=== PATIENT | male | born 1955 | race Caucasian/White ===

== ENCOUNTER 2018-10-15 11:45 | Inpatient (IN) | payer OTHER ==
[~2018-10-15] VITALS: Ht 160 cm; Wt 34.4 kg
[~2018-10-15 11:45] MED LIST: DOCU-144 PO; FER325 PO; PANT40TA3 PO
[2018-10-15] MEDS ORDERED: IOHEXOL 300MG/ML 150 ML BTL ONE ×2 (14:14→16:35)
[2018-10-15] MEDS ORDERED: SOD CHLORIDE 0.9% 100 ML ONE ×2 (14:14→16:35)
[2018-10-15] MEDS ORDERED: NYSTATIN SUSP 5 ML CUP PO ONE (14:30)
[2018-10-15] MEDS ORDERED: FLUCONAZOLE 200 MG (PMX) 100 ML IVPB ONE (14:30)
--- NOTE | 2018-10-15 14:30 | ERD ---
ER Documentation Chief Complaint Chief Complaint swallowing problem x 2 months HPI This is a 63-year-old male who is complaining of gradually worsening of swallowing. The patient says over the past 2 months he said worsening ability to swallow food and water. He said that he is now lost the ability to swallow food and is having a very difficult time even swallowing liquids or his own saliva. He feels like his throat is swollen and his tongue is swollen. He also has a bit of anorexia and weight loss over the past few months. Denies any chest pain shortness of breath no fever. The patient denies being diabetic, he does have a smoking history. Denies voice changes ROS All systems reviewed and are negative except as per history of present illness. Medications Home Meds Discontinued Scripts Ferrous Sulfate* (Ferrous Sulfate*) 325 Mg Tabec, 325 MG PO DAILY for 60 Days, TAB Prov:WILNER BURDEN MD 04/28/16 Docusate Sodium* (Colace*) 100 Mg Capsule, 100 MG PO BID, #60 CAP Prov:WILNER BURDEN MD 04/28/16 Pantoprazole* (Protonix*) 40 Mg Tablet.dr, 40 MG PO BID for 30 Days, TAB Prov:WILNER BURDEN MD 04/28/16 Allergies Allergies: Coded Allergies: No Known Allergy (Unverified , 11/16/15) PMhx/Soc History of Surgery: No Anesthesia Reaction: No Hx Neurological Disorder: No Hx Respiratory Disorders: No Hx Cardiac Disorders: No Hx Psychiatric Problems: No Hx Miscellaneous Medical Probl: No (Denies medical history or surgery) Hx Alcohol Use: Yes (use to 8 months in tx) Hx Substance Use: No Hx Tobacco Use: Yes Smoking Status: Current every day smoker FmHx Family History: No coronary disease Physical Exam Vitals Vital Signs Date Temp Pulse Resp B/P (MAP) Pulse Ox O2 O2 Flow FiO2 Time Delivery Rate 10/15/18 97.0 72 18 110/58 99 11:49 (75) Physical Exam Const: Well-developed, a bit cachectic Head: Atraumatic, normocephalic Eyes: Normal Conjunctiva, PERRLA, EOMI, normal sclera, no nystagmus ENT: Normal External Ears, extensive thrush to the soft and hard palate with thrush to the inner mouth mucous membranes and tongue, tongue is swollen, oropharynx is a bit difficult to visualize but has thrush as well. Neck: [Full range of motion. No meningismus, scattered nontender mobile very firm lymph nodes in the anterior and submandibular chains Resp: Clear to auscultation bilaterally, no wheezing, rhonchi, rales Cardio: Regular rate and rhythm, no murmurs, S1 S2 present Abd: Soft, non tender x 4, non distended. Normal bowel sounds, no guarding or rebound, no pulsitile abdominal masses or bruits Skin: No petechiae or rashes, no ecchymosis , no maculopapular rash Back: No midline or flank tenderness Ext: No cyanosis, or edema, FROM x 4, normal inspection, neurovascularly intact x 4 Neur: Awake and alert, STR 5/5 x 4, sensation intact x 4, no focal findings, cerebellum intact Psych: Normal Mood and Affect Result Diagram: 10/15/18 1312 10/15/18 1312 Results 24 hrs Laboratory Tests Test 10/15/18 13:12 White Blood Count 7.1 10^3/ul Red Blood Count 4.09 10^6/ul Hemoglobin 9.7 g/dl Hematocrit 31.8 % Mean Corpuscular Volume 77.8 fl Mean Corpuscular Hemoglobin 23.7 pg Mean Corpuscular Hemoglobin Concent 30.5 g/dl Red Cell Distribution Width 19.2 % Platelet Count 290 10^3/UL Mean Platelet Volume 9.1 fl Immature Granulocytes % 0.600 % Neutrophils % 84.0 % Lymphocytes % 10.6 % Monocytes % 4.5 % Eosinophils % 0.0 % Basophils % 0.3 % Nucleated Red Blood Cells % 0.0 /100WBC Immature Granulocytes # 0.040 10^3/ul Neutrophils # 5.9 10^3/ul Lymphocytes # 0.8 10^3/ul Monocytes # 0.3 10^3/ul Eosinophils # 0.0 10^3/ul Basophils # 0.0 10^3/ul Nucleated Red Blood Cells # 0.0 10^3/ul Sodium Level 143 mmol/L Potassium Level 3.9 mmol/L Chloride Level 100 mmol/L Carbon Dioxide Level 31 mmol/L Anion Gap 12 Blood Urea Nitrogen 21 mg/dl Creatinine 0.65 mg/dl Est Glomerular Filtrat Rate mL/min > 60 mL/min Glucose Level 81 mg/dl Calcium Level 9.6 mg/dl Total Bilirubin 0.7 mg/dl Direct Bilirubin 0.00 mg/dl Indirect Bilirubin 0.7 mg/dl Aspartate Amino Transf (AST/SGOT) 30 IU/L Alanine Aminotransferase (ALT/SGPT) 15 IU/L Alkaline Phosphatase 76 IU/L Total Protein 8.0 g/dl Albumin 4.1 g/dl Globulin 3.90 g/dl Albumin/Globulin Ratio 1.05 Current Medications Medications Dose Sig/Paige Start Time Status Last (Trade) Ordered Route PRN Stop Time Admin Dose Reason Admin IV Flush 10 ml STK-MED 10/15/18 DC 10/15/18 (NS 10 ml) ONCE .ROUTE 14:14 10/15/18 14:51 14:15 Sodium 100 ml @ ud STK-MED 10/15/18 DC 10/15/18 Chloride ONCE .ROUTE 14:14 10/15/18 14:51 14:15 Iohexol 150 ml STK-MED 10/15/18 DC 10/15/18 (Omnipaque ONCE .ROUTE 14:14 10/15/18 14:51 300mg/ ml) 14:15 Fluconazole 100 ml @ ONCE ONCE 10/15/18 100 mls/hr IVPB 14:30 10/15/18 15:29 Nystatin 10 ml ONCE ONCE 10/15/18 DC (Nystatin PO 14:30 10/15/18 Susp) 14:31 Procedures/MDM MR #: [id number] DOS: 10/15/18 1254 Ordering MD: ABY JOHNSON DO Location: E/R Room/Bed: PROCEDURE: XR Chest. CLINICAL INDICATION: Abdominal pain TECHNIQUE: Frontal chest x-ray was obtained. COMPARISON: None. FINDINGS: The heart is not enlarged. Mediastinum is not widened. No hilar masses seen. Lungs are clear of any infiltrates. There is no effusion or pneumothorax. The osseous structures appear normal. The patient is post CABG. IMPRESSION: No evidence for active cardiopulmonary disease. .Juancho Louis MD, MD Date Time Electronically viewed and signed by .Juancho Louis MD, MD on 10/15/2018 13:52 .A/ CC: CHELY JOHNSONILSA TamaraMarquez LLOYD [id number] PROCEDURE: CT of the neck CLINICAL INDICATION: Difficulty swallowing TECHNIQUE: Using a [employer] light speed [address] scanner, multiple axial CT image s of the neck were obtained from the skull base to the superior mediastinum. 80 cc of Omnipaque 300 was administered. Coronal and sagittal reformatted images were provided. The images were reviewed on a high-resolution PACS workstation. The CTDI vol is 9.53 mGy and the DLP is 225.3 mGy-cm. DICOM images are available. One or more of the following dose reduction techniques were used: Automated exposure control. Adjustment of the mA and/or kV according to patient size. Use of iterative reconstruction technique. COMPARISON: None FINDINGS: Diffuse soft tissue swelling is seen throughout the neck. The bilateral parotid and submandibular glands are normal in size and attenuation. Increased soft tissue density is seen in the floor of the mouth and base of the tongue with a collection of air and the suggestion of fluid which appears to communicate with the aerodigestive tract at the junction of the oropharynx and hypopharynx. The air collection measures approximately 4.1 x 2.8 x 2 cm in size. An area of irregular increased soft tissue density is also suspected in the left lateral wall of the oropharynx which appears to extend into the hypopharynx with the suggestion of the false vocal folds and is suspected to measure approximately 3.1 X 1.9 X 1.7 cm in size. A small amount of debris is seen in the right posterior lateral tracheal lumen. The nasopharynx, true vocal folds, and remainder of the subglottic region are otherwise unremarkable. The thyroid gland is normal in size and attenuation. Multiple enlarged lymph nodes within the cervical and submental chain are seen which are heterogeneous in attenuation. Centrilobular emphysematous changes in the visualized lung apices is seen. Diffuse osteopenia is seen. Degenerative spondylosis in the cervical spine is seen. A compression fracture of the T3 vertebral body is seen which is moderate in extent and appears to be chronic in nature. Vascular calcifications are seen. IMPRESSION: 1. Increased soft tissue density in the floor of mouth / base of tongue with the suggestion of a collection of air and fluid which communicates of the aerodigestive tract as described above and may represent a neoplastic process s uch as a primary squamous cell carcinoma. In addition, the possibility of an infectious/inflammatory process such as a clinical history of candidiasis should also be considered. The possibility of other neoplastic processes cannot be excluded. Further evaluation with endoscopy suggested. In addition, an MRI of the neck without and with intravenous contrast is recommended. 2. Suggestion of an irregular soft tissue mass in the left lateral oral pharyngeal wall which appears to extend into the hypopharynx and false vocal folds which may represent a neoplastic process such as a squamous cell carc inoma. Further evaluation with endoscopy tissue diagnosis may be of value. In addition, an MRI of the neck without and with intravenous contrast is recommended. 3. Multiple enlarged cervical and submental chain lymph nodes which appears to be necrotic in appearance and may represent lymph node metastasis. The possibility of an infectious etiology such as tuberculosis cannot be excluded. RPTAT: HPNM Results were discussed with Aby Johnson at 10/15/2018 2:47:23 PM Physician Pattie Date Time Electronically viewed and signed by Physician Pattie on 10/15/2018 14:53 / CC: ABY JOHNSON DO Patient has extensive Tari on exam I will give him intravenous fluconazole as well as oral nystatin dose. I ordered MRI with and without contrast of neck to evaluate for neoplastic process I paged ENT Dr. Saleem for consultation. Patient is unable to even swallow liquids at this point and will need to be admitted to the hospital for IV fluid hydration and further workup Departure Diagnosis: Primary Impression: Oral neoplasm Additional Impressions: Oral candidiasis Odynophagia Condition: Stable ABY JOHNSON DO Oct 15, 2018 14:30
[2018-10-15] MEDS ORDERED: SOD CHLORIDE 0.9% 1,000 ML IV SCH (15:38)
[2018-10-15] MEDS ORDERED: ACETAMINOPHEN 325 MG TAB PO PRN (16:00)
[2018-10-15] MEDS ORDERED: ONDANSETRON 4 MG INJ IV PRN ×2 (16:00→16:30)
[2018-10-15] MEDS ORDERED: morphine 2 MG INJ IV PRN (16:30)
[2018-10-15] MEDS ORDERED: NACL 0.9% 3 ML SYG IV SCH (16:30)
[2018-10-15] MEDS: NYSTATIN SUSP 5 ML CUP PO SCH ×2 (16:47→20:18)
--- NOTE | 2018-10-15 17:15 | HP ---
Date/Time of Note Date/Time of Note DATE: 10/15/18 TIME: 16:50 Assessment/Plan VTE Prophylaxis SCD applied (from Nsg): Yes Pharmacological prophylaxis: NA/contraindicated Pharm contraindication: surgical contra Lines/Catheters IV Catheter Type (from Nrsg): Saline Lock Assessment/Plan Assessment/Plan 1. Dysphagia, solid and liquids - CT scan suspicious for SCC. MRI ordered and results pending - Dr. Saleem consulted for further recommendations - Fluconazole IV as well as swish and spit ordered - Discussed potential need for PEG tube based on plan of care. - Oncology consultation placed given high suspicion for SCC. Dr. Ross will plan to see patient 2. Anemia - most like secondary to suppression - will check iron levels - given MCV 77, most likely iron deficiency 3. Tobacco abuse - nicotine patch 4. Severe protein malnutrition - patient usually is 125 lbs - will need to discuss nutrition based on findings of workup - IVF for now 5. Diet - NPO for now 6. DVT ppx - SCD 7. GI ppx - PPI 8. Disposition - Admit to med/surg for workup of dysphagia Result Diagram: 10/15/18 1312 10/15/18 1312 Results 24hrs Laboratory Tests Test 10/15/18 13:12 White Blood Count 7.1 Red Blood Count 4.09 L Hemoglobin 9.7 L Hematocrit 31.8 L Mean Corpuscular Volume 77.8 L Mean Corpuscular Hemoglobin 23.7 L Mean Corpuscular Hemoglobin Concent 30.5 L Red Cell Distribution Width 19.2 #H Platelet Count 290 Mean Platelet Volume 9.1 Immature Granulocytes % 0.600 H Neutrophils % 84.0 H Lymphocytes % 10.6 L Monocytes % 4.5 Eosinophils % 0.0 Basophils % 0.3 Nucleated Red Blood Cells % 0.0 Immature Granulocytes # 0.040 H Neutrophils # 5.9 Lymphocytes # 0.8 Monocytes # 0.3 Eosinophils # 0.0 Basophils # 0.0 Nucleated Red Blood Cells # 0.0 Sodium Level 143 Potassium Level 3.9 Chloride Level 100 Carbon Dioxide Level 31 Anion Gap 12 Blood Urea Nitrogen 21 H Creatinine 0.65 Est Glomerular Filtrat Rate mL/min > 60 Glucose Level 81 Calcium Level 9.6 Total Bilirubin 0.7 Direct Bilirubin 0.00 Indirect Bilirubin 0.7 Aspartate Amino Transf (AST/SGOT) 30 Alanine Aminotransferase (ALT/SGPT) 15 Alkaline Phosphatase 76 Total Protein 8.0 Albumin 4.1 Globulin 3.90 H Albumin/Globulin Ratio 1.05 HPI/ROS Admit Date/Time Admit Date/Time 10/15/18 1630 Hx of Present Illness 63 yo F with no significant PMH presented to ED with difficulty swallowing over the past 2 months with associated weight loss. Patient unable to communicate well and sister in law at bedside assisting with history. Patient has been ex periencing difficulty swallowing foods and progressively having difficulty swallowing liquids over the past week. Sister in law has noticed increase in fatigue over the past week and patient has been complaining of difficulty swallowing water and even his own saliva. He feels as if his throat is swollen as well as his tongue. He usually is 125 lbs and unsure how much weight he has lost. He was recorded at 78lb in the ED. Patient admits to ETOH use and tobacco abuse. Patient denies any family history of cancer, chest pain, shortness of breath, dizziness, fevers, chills, abdominal pain, or urinary issues. ROS All 12 systems reviewed and pertinent positives as per HPI. All others negative. Constitutional: No chills, No fatigue, No nausea Eyes: No discharge ENT: dysphagia, other (swelling throat and tongue); No pain, No congestion Respiratory: No cough, No shortness of breath, No sputum, No wheezing Cardiovascular: No chest pain, No lightheadedness, No palpitations Gastrointestinal: No pain, No constipation, No diarrhea, No nausea, No vomiting Genitourinary: no complaints Musculoskeletal: no complaints Skin: No bruising, No laceration, No rash Neurologic: No confusion, No dizziness, No focal-weakness, No syncope Endocrine: no complaints Lymphatic: no complaints Psychological: nl mood/affect Immunologic: no complaints PMH/Family/Social Past Medical History Medical History: no pertinent history Medications Current Medications Sodium Chloride 1,000 ml @ 80 mls/hr [id number] IV ; Start 10/15/18 at 15:38; Stop 10/16/18 at 04:07 Ondansetron HCl (Zofran Inj) 4 mg BRIDGE ORDER PRN IV NAUSEA/VOMITING; Start 10/15/18 at 16:00; Stop 10/16/18 at 15:59 Acetaminophen (Tylenol Tab) 650 mg ER BRIDGE PRN PO .MILD PAIN 1-3 OR TEMP; Start 10/15/18 at 16:00; Stop 10/16/18 at 15:59 Coded Allergies: No Known Allergy (Unverified , 11/16/15) Past Surgical History Past Surgical Hx: no surgical history Family History Significant Family History: no pertinent family hx Social History Alcohol Use: occasionally Smoking Status: Current every day smoker Drug Use: none Exam/Review of Systems Vital Signs Vitals Vital Signs Date Temp Pulse Resp B/P (MAP) Pulse Ox O2 O2 Flow FiO2 Time Delivery Rate 10/15/18 97.0 72 18 110/58 99 11:49 (75) Exam Exam General: Patient is laying in bed and answers questions. extremely cachetic HEENT: NC/AT, PERRL, EOM intact, thrush appreciate soft and hard palate and tongue. swelling of tongue and hard to visual oropharynx \ Neck: Supple, palpable submandibular LN b/l Chest: nontender Respiratory: Clear to auscultation bilaterally. no wheezing or rhonchi Cardiovascular: S1, S2, regular rate and rhythm, no obvious murmurs Gastrointestinal: soft, nontender to palpation, nondistended, bowel sounds heard. no rebound or guarding Neurological: Moves all extremities spontaneously. no focal deficits. motor and sensory intact Skin: No new skin lesions Additional Comments No home medications PROCEDURE: CT of the neck CLINICAL INDICATION: Difficulty swallowing TECHNIQUE: Using a [employer] light speed [address] scanner, multiple axial CT images of the neck were obtained from the skull base to the superior mediastinum. 80 cc of Omnipaque 300 was administered. Coronal and sagittal reformatted images were provided. The images were reviewed on a high-resolution PACS workstation. The CTDI vol is 9.53 mGy and the DLP is 225.3 mGy-cm. DICOM images are available. One or more of the following dose reduction techniques were used: Automated exposure control. Adjustment of the mA and/or kV according to patient size. Use of iterative reconstruction technique. COMPARISON: None FINDINGS: Diffuse soft tissue swelling is seen throughout the neck. The bilateral parotid and submandibular glands are normal in size and attenuation. Increased soft tissue density is seen in the floor of the mouth and base of the tongue with a collection of air and the suggestion of fluid which appears to communicate with the aerodigestive tract at the junction of the oropharynx and hypopharynx. The air collection measures approximately 4.1 x 2.8 x 2 cm in size. An area of irregular increased soft tissue density is also suspected in the left lateral wall of the oropharynx which appears to extend into the hypopharynx with the suggestion of the false vocal folds and is suspected to measure approximately 3.1 X 1.9 X 1.7 cm in size. A small amount of debris is seen in the right posterior lateral tracheal lumen. The nasopharynx, true vocal folds, and remainder of the subglottic region are otherwise unremarkable. The thyroid gland is normal in size and attenuation. Multiple enlarged lymph nodes within the cervical and submental chain are seen which are heterogeneous in attenuation. Centrilobular emphysematous changes in the visualized lung apices is seen. Diffuse osteopenia is seen. Degenerative spondylosis in the cervical spine is seen. A compression fracture of the T3 vertebral body is seen which is moderate in extent and appears to be chronic in nature. Vascular calcifications are seen. IMPRESSION: 1. Increased soft tissue density in the floor of mouth / base of tongue with the suggestion of a collection of air and fluid which communicates of the a erodigestive tract as described above and may represent a neoplastic process such as a primary squamous cell carcinoma. In addition, the possibility of an infectious/inflammatory process such as a clinical history of candidiasis should also be considered. The possibility of other neoplastic processes cannot be excluded. Further evaluation with endoscopy suggested. In addition, an MRI of the neck without and with intravenous contrast is recommended. 2. Suggestion of an irregular soft tissue mass in the left lateral oral pharyngeal wall which appears to extend into the hypopharynx and false vocal folds which may represent a neoplastic process such as a squamous cell carcinoma. Further evaluation with endoscopy tissue diagnosis may be of value. In addition, an MRI of the neck without and with intravenous contrast is recommended. 3. Multiple enlarged cervical and submental chain lymph nodes which appears to be necrotic in appearance and may represent lymph node metastasis. The possibility of an infectious etiology such as tuberculosis cannot be excluded. RPTAT: HPNM Results were discussed with Aby Farfan at 10/15/2018 2:47:23 PM Pedro Del Valle, Physician Date Time Electronically viewed and signed by Pedro Del Valle Physician on 10/15/2018 14:53 PROCEDURE: XR Chest. CLINICAL INDICATION: Abdominal pain TECHNIQUE: Frontal chest x-ray was obtained. COMPARISON: None. FINDINGS: The heart is not enlarged. Mediastinum is not widened. No hilar masses seen. Lungs are clear of any infiltrates. There is hyperinflation. There is no effusion or pneumothorax. The osseous structures appear normal. IMPRESSION: No evidence for active cardiopulmonary disease. Hyperinflation. .Juancho Louis MD, MD Date Time Electronically viewed and signed by .Juancho Louis MD, MD on 10/15/2018 13:53 DARRON KULKARNI MD Oct 15, 2018 17:03
[2018-10-15 17:56] VITALS: Ht 160 cm; Wt 34.4 kg
[2018-10-15 18:11] VITALS: BP 130/68; PULSE 77; RESP 17
[2018-10-15] MEDS: DEXTROSE 5%-0.45% NACL 1,000 ML IV SCH (18:19)
[2018-10-15] MEDS: FLUCONAZOLE 100 MG/50 ML (PMX) 50 ML IVPB SCH (19:30)
[2018-10-15 20:00] VITALS: BP 116/79; PULSE 85; RESP 18
[2018-10-16 01:57] VITALS: BP 106/66; PULSE 62; RESP 17
[2018-10-16] MEDS: DEXTROSE 5%-0.45% NACL 1,000 ML IV SCH ×4 (05:29→23:56)
[2018-10-16] MEDS: PANTOPRAZOLE 40 MG INJ IV SCH (05:51)
[2018-10-16 07:13] VITALS: BP 100/64; PULSE 61; RESP 16
--- NOTE | 2018-10-16 08:21 | PN ---
Date/Time of Note Date/Time of Note DATE: 10/16/18 TIME: 08:21 Assessment/Plan VTE Prophylaxis Risk score (from Ns)>0 risk: 2 SCD applied (from Ns): Yes Pharmacological prophylaxis: heparin Lines/Catheters IV Catheter Type (from Nrsg): Peripheral IV Assessment/Plan Assessment/Plan 1. Dysphagia, solid and liquids - CT scan suspicious for SCC. MRI ordered and resulted noted - Dr. Saleem consulted for further recommendations - Fluconazole IV on board. Thrush on tongue and palate not appreciate this am after provided oral care yesterday - Discussed potential need for PEG tube based on plan of care. - Oncology consultation placed given high suspicion for SCC. Dr. Ross will plan to see patient tomorrow 2. Anemia, iron deficiency - IV iron replacement - will need PO when able to tolerate 3. Tobacco abuse - nicotine patch 4. Severe protein malnutrition 5. Disposition - Awaiting ENT consultation by Dr. Saleem - Dr. Ross will see patient Wednesday Result Diagram: 10/16/18 0508 10/16/18 0428 Results 24hrs Laboratory Tests Test 10/15/18 13:12 10/16/18 04:28 10/16/18 05:08 White Blood Count 7.1 5.9 Red Blood Count 4.09 L 3.91 L Hemoglobin 9.7 L 9.2 L Hematocrit 31.8 L 30.8 L Mean Corpuscular Volume 77.8 L 78.8 L Mean Corpuscular Hemoglobin 23.7 L 23.5 L Mean Corpuscular Hemoglobin Concent 30.5 L 29.9 L Red Cell Distribution Width 19.2 #H 19.1 H Platelet Count 290 278 Mean Platelet Volume 9.1 9.8 Immature Granulocytes % 0.600 H 0.300 Neutrophils % 84.0 H 75.6 Lymphocytes % 10.6 L 16.5 Monocytes % 4.5 7.4 Eosinophils % 0.0 0.0 Basophils % 0.3 0.2 Nucleated Red Blood Cells % 0.0 0.0 Immature Granulocytes # 0.040 H 0.020 Neutrophils # 5.9 4.5 Lymphocytes # 0.8 1.0 Monocytes # 0.3 0.4 Eosinophils # 0.0 0.0 Basophils # 0.0 0.0 Nucleated Red Blood Cells # 0.0 0.0 Sodium Level 143 139 Potassium Level 3.9 4.7 Chloride Level 100 99 Carbon Dioxide Level 31 31 Anion Gap 12 9 Blood Urea Nitrogen 21 H 19 Creatinine 0.65 0.70 Est Glomerular Filtrat Rate mL/min > 60 > 60 Glucose Level 81 88 Calcium Level 9.6 9.1 Iron Level 21 L Total Iron Binding Capacity 346 Percent Iron Saturation 6 L Total Bilirubin 0.7 Direct Bilirubin 0.00 Indirect Bilirubin 0.7 Aspartate Amino Transf (AST/SGOT) 30 Alanine Aminotransferase (ALT/SGPT) 15 Alkaline Phosphatase 76 Total Protein 8.0 Albumin 4.1 Globulin 3.90 H Albumin/Globulin Ratio 1.05 Magnesium Level 2.3 Subjective 24 Hr Interval Summary Free Text/Dictation Patient states he is feeling better since yesterday but still unable to swallow liquids. States its been about 4 day prior to arrival since he was able to s wallow liquids but has been trying to drink Ensure at home. Brother at bedside. Exam/Review of Systems Exam Vitals Vital Signs Date Temp Pulse Resp B/P (MAP) Pulse Ox O2 O2 Flow FiO2 Time Delivery Rate 10/16/18 97.7 61 16 100/64 98 07:13 (76) 10/16/18 Room Air 01:57 Intake and Output 10/15/18 10/15/18 10/16/18 1515:00 23:00 07:00 IntakeIntake Total 50 ml 850 ml BalanceBalance 50 ml 850 ml Exam General: Patient is laying in bed. no acute distress. extremely cachetic HEENT: NC/AT, PERRL, EOM intact, no thrush appreciate on tongue or palate Neck: Supple, palpable submandibular LN b/l, nontender Chest: nontender Respiratory: Clear to auscultation bilaterally. no wheezing or rhonchi Cardiovascular: S1, S2, regular rate and rhythm, no obvious murmurs Gastrointestinal: soft, nontender to palpation, nondistended, bowel sounds heard. no rebound or guarding Skin: No new skin lesions Results Results 24hrs Laboratory Tests Test 10/15/18 13:12 10/16/18 04:28 10/16/18 05:08 White Blood Count 7.1 5.9 Red Blood Count 4.09 L 3.91 L Hemoglobin 9.7 L 9.2 L Hematocrit 31.8 L 30.8 L Mean Corpuscular Volume 77.8 L 78.8 L Mean Corpuscular Hemoglobin 23.7 L 23.5 L Mean Corpuscular Hemoglobin Concent 30.5 L 29.9 L Red Cell Distribution Width 19.2 #H 19.1 H Platelet Count 290 278 Mean Platelet Volume 9.1 9.8 Immature Granulocytes % 0.600 H 0.300 Neutrophils % 84.0 H 75.6 Lymphocytes % 10.6 L 16.5 Monocytes % 4.5 7.4 Eosinophils % 0.0 0.0 Basophils % 0.3 0.2 Nucleated Red Blood Cells % 0.0 0.0 Immature Granulocytes # 0.040 H 0.020 Neutrophils # 5.9 4.5 Lymphocytes # 0.8 1.0 Monocytes # 0.3 0.4 Eosinophils # 0.0 0.0 Basophils # 0.0 0.0 Nucleated Red Blood Cells # 0.0 0.0 Sodium Level 143 139 Potassium Level 3.9 4.7 Chloride Level 100 99 Carbon Dioxide Level 31 31 Anion Gap 12 9 Blood Urea Nitrogen 21 H 19 Creatinine 0.65 0.70 Est Glomerular Filtrat Rate mL/min > 60 > 60 Glucose Level 81 88 Calcium Level 9.6 9.1 Iron Level 21 L Total Iron Binding Capacity 346 Percent Iron Saturation 6 L Total Bilirubin 0.7 Direct Bilirubin 0.00 Indirect Bilirubin 0.7 Aspartate Amino Transf (AST/SGOT) 30 Alanine Aminotransferase (ALT/SGPT) 15 Alkaline Phosphatase 76 Total Protein 8.0 Albumin 4.1 Globulin 3.90 H Albumin/Globulin Ratio 1.05 Magnesium Level 2.3 Medications Medication Current Medications Dextrose/Sodium Chloride 1,000 ml @ 75 mls/hr [id number] IV Last administered on 10/15/18at 18:19; Admin Dose 75 MLS/HR; Start 10/15/18 at 16:09 IV Flush (NS 3 ml) 3 ml PER PROTOCOL IV ; Start 10/15/18 at 16:30 Ondansetron HCl (Zofran Inj) 4 mg Q6H PRN IV NAUSEA/VOMITING; Start 10/15/18 at 16:30 Morphine Sulfate (morphine) 2 mg Q4H PRN IV .SEVERE PAIN 7-10; Start 10/15/18 at 16:30 Pantoprazole (Protonix Iv) 40 mg DAILY@06 IV Last administered on 10/16/18at 05:51; Admin Dose 40 MG; Start 10/16/18 at 06:00 Nystatin (Nystatin Susp) 5 ml QID PO Last administered on 10/15/18at 20:18; Admin Dose 5 ML; Start 10/15/18 at 17:00 Nicotine (Nicoderm 21 Mg/ 24hr) 1 patch DAILY TRANSDERM ; Start 10/16/18 at 09:00 Fluconazole/ Sodium Chloride 50 ml @ 50 mls/hr Q24H IVPB Last administered on 10/15/18at 19:30; Admin Dose 50 MLS/HR; Start 10/15/18 at 17:30 Influenza Virus Vaccine Quadrival (Fluzone) 0.5 ml ONCE ONCE IM* ; Start 10/16/18 at 09:00; Stop 10/16/18 at 09:01 DARRON KULKARNI MD Oct 16, 2018 08:21
[2018-10-16] MEDS: NYSTATIN SUSP 5 ML CUP PO SCH ×2 (08:45→13:44)
[2018-10-16] MEDS: NICOTINE (21 MG/24 HR) PATCH TRANSDERM SCH (08:45)
[2018-10-16] MEDS ORDERED: INFLUENZA VIRUS VACCINE 0.5 ML (DISPENSING) IM* ONE (09:00)
[2018-10-16 14:48] VITALS: BP 119/72; PULSE 57; RESP 16
[2018-10-16] MEDS: FLUCONAZOLE 100 MG/50 ML (PMX) 50 ML IVPB SCH (16:51)
[2018-10-16 19:48] VITALS: BP 115/70; PULSE 55; RESP 18
[2018-10-16] MEDS: HEPARIN 5,000 UNIT/1 ML VIAL SC SCH (20:46)
[2018-10-17 01:36] VITALS: BP 123/71; PULSE 59; RESP 18
[2018-10-17] MEDS: PANTOPRAZOLE 40 MG INJ IV SCH (05:17)
[2018-10-17 07:19] VITALS: BP 132/75; PULSE 59; RESP 16
[2018-10-17] MEDS: HEPARIN 5,000 UNIT/1 ML VIAL SC SCH (09:04)
[2018-10-17] MEDS: NICOTINE (21 MG/24 HR) PATCH TRANSDERM SCH (09:08)
[2018-10-17 13:23] VITALS: BP 123/73; PULSE 50; RESP 16
--- NOTE | 2018-10-17 13:52 | HP ---
DATE OF ADMISSION: 10/15/2018 HISTORY OF PRESENT ILLNESS: Cassius Dykes is a 63-year-old gentleman with some mild dysphagia and a m uffled voice. ENT was consulted to evaluate. PAST MEDICAL HISTORY: Negative for any heart, lung, kidney failure, liver disease. PAST SURGICAL HISTORY: None. ALLERGIES: No known drug allergies. MEDICATIONS: Patient takes no medicines at home. SOCIAL HISTORY: Positive for a long history of tobacco abuse. Negative for alcohol abuse or drug ab use. FAMILY HISTORY: Negative for any heart, lung, kidney, thyroid, liver disease. REVIEW OF SYSTEMS: A 12-point review of systems otherwise noncontributory. Negative for any otalgia or odynophagia, no hemoptysis. PHYSICAL EXAMINATION: Septum deviated anteriorly to the right, posteriorly to the left. The oral ca vity and oropharynx show tongue, floor of mouth are normal. Tonsils are not enlarged. He does have a ptotic soft palate, but the oropharynx, though I can see is without lesion. The neck reveals bilat eral level 2 lymphadenopathy and is quite firm in nature. Endoscopy performed through the right nasa l cavity shows the nasopharynx to be clear. The base of tongue has an approximately a 2 cm midline. Lesion posterior to that I can see the vocal cords, they are moving well without any obstruction or hindrance to their mobility. The airway is reasonable. He does have quite a good deal of inspissate d and thickened secretions within the hypopharynx. IMPRESSION: Base of tongue mass, lymphadenopathy, deviated nasal septum. PLAN: At this point, if the diagnosis has not already been obtained, it is reasonable to proceed wit h a fine needle aspiration biopsy of the level 2 lymphadenopathy to secure a diagnosis of what appear s to be most likely squamous cell carcinoma. Once that is done, he can proceed with radiation therap y and possibly chemotherapy. If there are any questions or concerns, please feel free to reconsult a t any time. Dictated By: REGI ASHER MD DM/NTS Conf#: [id number] DID#: [id number] CC: DARRON KULKARNI MD;*EndCC*
--- NOTE | 2018-10-17 13:56 | CONS ---
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, locally advanced -need tissue diagnosis, ENT has been consulted -for US guided biopsy of cervical LN mass -CT chest is negative for mets -once we have pathology back on biopsy, if confirmed to be SCCa of head and neck would most likely receive a combine chemotherapy RT approach with cisplatin give every 3 weeks IV while on radiation -needs dental evaluation -needs mediport and PEG tube -nutrition evaluation -for iron def anemia agree with IV iron given that pt cannot drink/ or eat Consultation Date/Type/Reason Admit Date/Time 10/15/18 1630 Date/Time of Note DATE: 10/17/18 TIME: 13:54 Hx of Present Illness 63 yo male with w difficulty swallowing over the past 2 months with associated weight loss. Also has difficulty swallowing solids and now with difficulty swallowing liquids over the past week. Family notes fatigue. Feels that his throat and tongue are swollen. Has lost about [address] neck 10/15/18: 1. Increased soft tissue density in the floor of mouth / base of tongue with the suggestion of a collection of air and fluid which communicates of the aerodigestive tract as described above and may represent a neoplastic process such as a primary squamous cell carcinoma. In addition, the possibility of an infectious/inflammatory process such as a clinical history of candidiasis should also be considered. The possibility of other neoplastic processes cannot be exc luded. Further evaluation with endoscopy suggested. In addition, an MRI of the neck without and with intravenous contrast is recommended. 2. Suggestion of an irregular soft tissue mass in the left lateral oral pharyngeal wall which appears to extend into the hypopharynx and false vocal folds which may represent a neoplastic process such as a squamous cell carcinoma. Further evaluation with endoscopy tissue diagnosis may be of value. In addition, an MRI of the neck without and with intravenous contrast is recommended. 3. Multiple enlarged cervical and submental chain lymph nodes which appears to be necrotic in appearance and may represent lymph node metastasis. The possibility of an infectious etiology such as tuberculosis cannot be excluded. CT chest shows no mets ENT has been consulted as has radiation oncology Constitutional: poor po Eyes: no complaints ENT: pain, dysphagia, sore throat Respiratory: no complaints Cardiovascular: no complaints Gastrointestinal: decreased appetite, nausea Genitourinary: no complaints Musculoskeletal: no complaints Skin: no complaints Neurologic: no complaints Endocrine: no complaints Lymphatic: no complaints Psychological: no complaints, nl mood/affect Past Medical History Medical History: no pertinent history Home Meds Discontinued Scripts Ferrous Sulfate* (Ferrous Sulfate*) 325 Mg Tabec, 325 MG PO DAILY for 60 Days, TAB Prov:WILNER BURDEN MD 04/28/16 Docusate Sodium* (Colace*) 100 Mg Capsule, 100 MG PO BID, #60 CAP Prov:WILNER BURDEN MD 04/28/16 Pantoprazole* (Protonix*) 40 Mg Tablet.dr, 40 MG PO BID for 30 Days, TAB Prov:WILNER BURDEN MD 04/28/16 Medications Current Medications Dextrose/Sodium Chloride 1,000 ml @ 75 mls/hr [id number] IV Last administered on 10/16/18at 23:56; Admin Dose 75 MLS/HR; Start 10/15/18 at 16:09 IV Flush (NS 3 ml) 3 ml PER PROTOCOL IV ; Start 10/15/18 at 16:30 Ondansetron HCl (Zofran Inj) 4 mg Q6H PRN IV NAUSEA/VOMITING; Start 10/15/18 at 16:30 Morphine Sulfate (morphine) 2 mg Q4H PRN IV .SEVERE PAIN 7-10; Start 10/15/18 at 16:30 Pantoprazole (Protonix Iv) 40 mg DAILY@06 IV Last administered on 10/17/18at 05:17; Admin Dose 40 MG; Start 10/16/18 at 06:00 Nicotine (Nicoderm 21 Mg/ 24hr) 1 patch DAILY TRANSDERM Last administered on 10/17/18at 09:08; Admin Dose 1 PATCH; Start 10/16/18 at 09:00 Fluconazole/ Sodium Chloride 50 ml @ 50 mls/hr Q24H IVPB Last administered on 10/16/18at 16:51; Admin Dose 50 MLS/HR; Start 10/15/18 at 17:30 Heparin Sodium (Porcine) (Heparin (5000 Units/1ml)) 5,000 unit BID SC Last administered on 10/17/18at 09:04; Admin Dose 5,000 UNIT; Start 10/16/18 at 21:00 Ferric Sodium Gluconate Complex 125 mg/Sodium Chloride 100 ml @ 100 mls/hr JACKIE LY@1300 IVPB ; Start 10/17/18 at 13:00; Stop 10/19/18 at 13:59 Allergies: Coded Allergies: No Known Allergy (Unverified , 11/16/15) Past Surgical History Past Surgical Hx: no surgical history Social History Alcohol Use: occasionally Smoking Status: Heavy tobacco smoker Drug Use: none Exam/Review of Systems Exam Vitals Vital Signs Date Temp Pulse Resp B/P (MAP) Pulse Ox O2 O2 Flow FiO2 Time Delivery Rate 10/17/18 97.5 50 16 123/73 100 13:23 (90) 10/16/18 Room Air 01:57 Intake and Output 10/16/18 10/16/18 10/17/18 1515:00 23:00 07:00 IntakeIntake Total 150 ml 575 ml 1000 ml BalanceBalance 150 ml 575 ml 1000 ml Constitutional: frail Psych: no complaints, nl mood/affect Head: normocephalic, atraumatic Eyes: nl conjunctiva, EOMI, nl lids, nl sclera, PERRL Neck: masses, other (large right sided LN mass cervical region about 4 cm) Results Result Diagram: 10/17/18 0500 10/17/18 0500 Results 24hrs Laboratory Tests Test 10/17/18 05:00 White Blood Count 4.9 Red Blood Count 4.28 L Hemoglobin 9.9 L Hematocrit 33.2 L Mean Corpuscular Volume 77.6 L Mean Corpuscular Hemoglobin 23.1 L Mean Corpuscular Hemoglobin Concent 29.8 L Red Cell Distribution Width 19.4 H Platelet Count 284 Mean Platelet Volume 9.8 Immature Granulocytes % 0.200 Neutrophils % 75.7 Lymphocytes % 16.9 Monocytes % 7.0 Eosinophils % 0.0 Basophils % 0.2 Nucleated Red Blood Cells % 0.0 Immature Granulocytes # 0.010 Neutrophils # 3.7 Lymphocytes # 0.8 Monocytes # 0.3 Eosinophils # 0.0 Basophils # 0.0 Nucleated Red Blood Cells # 0.0 Sodium Level 137 Potassium Level 4.3 Chloride Level 98 Carbon Dioxide Level 29 Anion Gap 10 Blood Urea Nitrogen 13 Creatinine 0.60 L Glucose Level 100 Calcium Level 9.0 Phosphorus Level 3.0 Magnesium Level 2.1 Albumin 3.3 Medications Medication Current Medications Dextrose/Sodium Chloride 1,000 ml @ 75 mls/hr [id number] IV Last administered on 10/16/18at 23:56; Admin Dose 75 MLS/HR; Start 10/15/18 at 16:09 IV Flush (NS 3 ml) 3 ml PER PROTOCOL IV ; Start 10/15/18 at 16:30 Ondansetron HCl (Zofran Inj) 4 mg Q6H PRN IV NAUSEA/VOMITING; Start 10/15/18 at 16:30 Morphine Sulfate (morphine) 2 mg Q4H PRN IV .SEVERE PAIN 7-10; Start 10/15/18 at 16:30 Pantoprazole (Protonix Iv) 40 mg DAILY@06 IV Last administered on 10/17/18 05:17; Admin Dose 40 MG; Start 10/16/18 at 06:00 Nicotine (Nicoderm 21 Mg/ 24hr) 1 patch DAILY TRANSDERM Last administered on 10/17/18at 09:08; Admin Dose 1 PATCH; Start 10/16/18 at 09:00 Fluconazole/ Sodium Chloride 50 ml @ 50 mls/hr Q24H IVPB Last administered on 10/16/18at 16:51; Admin Dose 50 MLS/HR; Start 10/15/18 at 17:30 Heparin Sodium (Porcine) (Heparin (5000 Units/1ml)) 5,000 unit BID SC Last administered on 10/17/18 09:04; Admin Dose 5,000 UNIT; Start 10/16/18 at 21:00 Ferric Sodium Gluconate Complex 125 mg/Sodium Chloride 100 ml @ 100 mls/hr DAILY@1300 IVPB ; Start 10/17/18 at 13:00; Stop 10/19/18 at 13:59 TRISH FARIAS Oct 17, 2018 13:55
[2018-10-17] MEDS: SOD FERRIC GLUC COMPLX 125 MG in SOD CHLORIDE 0.9% 100 ML IVPB SCH (14:01)
--- NOTE | 2018-10-17 15:12 | PN ---
Date/Time of Note Date/Time of Note DATE: 10/17/18 TIME: 15:12 Objective Vitals Vital Signs Date Temp Pulse Resp B/P (MAP) Pulse Ox O2 O2 Flow FiO2 Time Delivery Rate 10/17/18 97.5 50 16 123/73 100 13:23 (90) 10/16/18 Room Air 01:57 Intake and Output 10/16/18 10/16/18 10/17/18 1515:00 23:00 07:00 IntakeIntake Total 150 ml 575 ml 1000 ml BalanceBalance 150 ml 575 ml 1000 ml Results Result Diagram: 10/17/18 0500 10/17/18 0500 Medications Medications Current Medications Dextrose/Sodium Chloride 1,000 ml @ 75 mls/hr [id number] IV Last administered on 10/16/18at 23:56; Admin Dose 75 MLS/HR; Start 10/15/18 at 16:09 IV Flush (NS 3 ml) 3 ml PER PROTOCOL IV ; Start 10/15/18 at 16:30 Ondansetron HCl (Zofran Inj) 4 mg Q6H PRN IV NAUSEA/VOMITING; Start 10/15/18 at 16:30 Morphine Sulfate (morphine) 2 mg Q4H PRN IV .SEVERE PAIN 7-10; Start 10/15/18 at 16:30 Pantoprazole (Protonix Iv) 40 mg DAILY@06 IV Last administered on 10/17/18at 05:17; Admin Dose 40 MG; Start 10/16/18 at 06:00 Nicotine (Nicoderm 21 Mg/ 24hr) 1 patch DAILY TRANSDERM Last administered on 10/17/18at 09:08; Admin Dose 1 PATCH; Start 10/16/18 at 09:00 Fluconazole/ Sodium Chloride 50 ml @ 50 mls/hr Q24H IVPB Last administered on 10/16/18at 16:51; Admin Dose 50 MLS/HR; Start 10/15/18 at 17:30 Heparin Sodium (Porcine) (Heparin (5000 Units/1ml)) 5,000 unit BID SC Last administered on 10/17/18at 09:04; Admin Dose 5,000 UNIT; Start 10/16/18 at 21:00 Ferric Sodium Gluconate Complex 125 mg/Sodium Chloride 100 ml @ 100 mls/hr DAILY@1300 IVPB Last administered on 10/17/18at 14:01; Admin Dose 100 MLS/HR; Start 10/17/18 at 13:00; Stop 10/19/18 at 13:59 VTE Prophylaxis Risk score (from Ns)>0 risk: 2 [place] [facility] [place] Lines/Catheters IV Catheter Type: Juárez in Place: No Assessment/Plan Hospital Course Subjective No acute changes, still having difficulty swallowing, patient insists that he has ability to swallow liquids Objective Physical exam General: Patient is laying in bed and answers questions appropriately Mentation: Patient is alert and oriented 4, Head: Normocephalic atraumatic Eyes: EOMI, pupils reactive to light Neck: Supple, very mildly tender, prominent lymph nodes Respiratory: Clear to auscultation bilaterally Cardiovascular: regular rate, no obvious murmurs Gastrointestinal: non-tender to palpation, bowel sounds heard. Neurological: Moves all extremities spontaneously Skin: No new skin lesions Assessment/Plan 1. Dysphagia, solid and liquids - CT scan suspicious for SCC. biopsy ordered - Dr. Ortiz ENT, saw patient, not surgical candidate, but ok for lymph node biopsy of level 2 lymph nodes - Fluconazole IV on board. Thrush on tongue and palate not appreciate after provided oral care - Discussed potential need for PEG tube based on plan of care. Will await biopsy results, IVF and TPN if still npo after speech eval. - Oncology consultation placed given high suspicion for SCC, pending biopsy 2. Anemia, iron deficiency - IV iron replacement - will need PO when able to tolerate 3. Tobacco abuse - nicotine patch 4. Severe protein malnutrition 5. Disposition -Ultrasound biopsy pending, oncology recommendations appreciated, will proceed after biopsy results and speech therapy evaluation anticipate multiple days stay. Patient unable to tolerate p.o. intake REGI AYALA Oct 17, 2018 15:12
[2018-10-17] MEDS: FLUCONAZOLE 100 MG/50 ML (PMX) 50 ML IVPB SCH (18:17)
[2018-10-17] MEDS: DEXTROSE 5%-0.45% NACL 1,000 ML IV SCH (18:19)
[2018-10-17 19:23] VITALS: BP 121/75; PULSE 55; RESP 18
[2018-10-18] MEDS: DEXTROSE 5%-0.45% NACL 1,000 ML IV SCH ×2 (01:30→06:12)
[2018-10-18 01:39] VITALS: BP 129/68; PULSE 60; RESP 18
[2018-10-18] MEDS: PANTOPRAZOLE 40 MG INJ IV SCH (06:12)
[2018-10-18 07:16] VITALS: BP 120/66; PULSE 64; RESP 17
[2018-10-18] MEDS: HEPARIN 5,000 UNIT/1 ML VIAL SC SCH (08:00)
[2018-10-18] MEDS: NICOTINE (21 MG/24 HR) PATCH TRANSDERM SCH (08:29)
[2018-10-18] MEDS ORDERED: LIDOCAINE 1% (MDV) 20 ML INJ ONE (09:19)
[2018-10-18] MEDS ORDERED: LIDOCAINE 1% (MPF) 5 ML VIAL ONE (09:28)
[2018-10-18 09:50] VITALS: BP 130/70; PULSE 62; RESP 18
[2018-10-18 10:20] VITALS: BP 112/70; PULSE 58; RESP 17
--- NOTE | 2018-10-18 10:38 | HPN ---
Date/Time of Note Date/Time of Note DATE: 10/18/18 TIME: 10:38 Interval H&P Admission Note Pt. seen H&P reviewed: No system changes MANOJ MARKS MD Oct 18, 2018 10:38
--- NOTE | 2018-10-18 10:51 | PN ---
Date/Time of Note Date/Time of Note DATE: 10/18/18 TIME: 10:50 Objective Vitals Vital Signs Date Temp Pulse Resp B/P (MAP) Pulse Ox O2 O2 Flow FiO2 Time Delivery Rate 10/18/18 98.2 64 17 120/66 100 07:16 (84) 10/16/18 Room Air 01:57 Intake and Output 10/17/18 10/17/18 10/18/18 1515:00 23:00 07:00 IntakeIntake Total 625 ml 1000 ml OutputOutput Total 600 ml BalanceBalance 625 ml 400 ml Results Result Diagram: 10/18/1843410/18/18434 Medications Medications Current Medications Dextrose/Sodium Chloride 1,000 ml @ 75 mls/hr [id number] IV Last administered on 10/18/18at 06:12; Admin Dose 75 MLS/HR; Start 10/15/18 at 16:09 IV Flush (NS 3 ml) 3 ml PER PROTOCOL IV ; Start 10/15/18 at 16:30 Ondansetron HCl (Zofran Inj) 4 mg Q6H PRN IV NAUSEA/VOMITING; Start 10/15/18 at 16:30 Morphine Sulfate (morphine) 2 mg Q4H PRN IV .SEVERE PAIN 7-10; Start 10/15/18 at 16:30 Pantoprazole (Protonix Iv) 40 mg DAILY@06 IV Last administered on 10/18/18at 06:12; Admin Dose 40 MG; Start 10/16/18 at 06:00 Nicotine (Nicoderm 21 Mg/ 24hr) 1 patch DAILY TRANSDERM Last administered on 10/18/18at 08:29; Admin Dose 1 PATCH; Start 10/16/18 at 09:00 Fluconazole/ Sodium Chloride 50 ml @ 50 mls/hr Q24H IVPB Last administered on 10/17/18at 18:17; Admin Dose 50 MLS/HR; Start 10/15/18 at 17:30 Heparin Sodium (Porcine) (Heparin (5000 Units/1ml)) 5,000 unit BID SC Last administered on 10/17/18at 09:04; Admin Dose 5,000 UNIT; Start 10/16/18 at 21:00; Status Hold Ferric Sodium Gluconate Complex 125 mg/Sodium Chloride 100 ml @ 100 mls/hr DAILY@1300 IVPB Last administered on 10/17/18at 14:01; Admin Dose 100 MLS/HR; S tart 10/17/18 at 13:00; Stop 10/19/18 at 13:59 VTE Prophylaxis Risk score (from Ns)>0 risk: 2 SCD applied (from Ns): Yes Lines/Catheters IV Catheter Type: Juárez in Place: No Assessment/Plan Hospital Course Subjective No acute changes, still having difficulty swallowing, patient insists that he has ability to swallow liquids Objective Physical exam General: Patient is laying in bed and answers questions appropriately Mentation: Patient is alert and oriented 4, Head: Normocephalic atraumatic Eyes: EOMI, pupils reactive to light Neck: Supple, very mildly tender, prominent lymph nodes Respiratory: Clear to auscultation bilaterally Cardiovascular: regular rate, no obvious murmurs Gastrointestinal: non-tender to palpation, bowel sounds heard. Neurological: Moves all extremities spontaneously Skin: No new skin lesions Assessment/Plan 1. Dysphagia, solid and liquids - CT scan suspicious for SCC. biopsy done, results pending - Dr. Ortiz ENT, saw patient, not surgical candidate, but ok for lymph node biopsy of level 2 lymph nodes - Fluconazole IV on board. Thrush on tongue and palate not appreciate after provided oral care - Discussed potential need for PEG tube based on plan of care. Will await biopsy results, IVF and TPN if still npo after speech eval. - Oncology consultation placed given high suspicion for SCC, pending biopsy 2. Anemia, iron deficiency - IV iron replacement - will need PO when able to tolerate 3. Tobacco abuse - nicotine patch 4. Severe protein malnutrition Oral thrush -On IV fluconazole -ID consulted 5. Disposition -biopsy results pending -Speech therapy to evaluate patient if patient unable to tolerate liquids, will initiate TPN. REGI AYALA Oct 18, 2018 10:51
--- NOTE | 2018-10-18 12:41 | CONS ---
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 Patient seen in collaboration with Dr. Daniel CC: ZAIDA DANIEL MD ; Consultation Date/Type/Reason Admit Date/Time 10/15/18 1630 Date of Consultation: Oct 18, 2018 Type of Consult GI Reason for Consultation Dysphagia Date/Time of Note DATE: 10/18/18 TIME: 12:35 Hx of Present Illness This is a 63-year-old male with no past medical history amd socail history of tobacoo use, scented to the hospital with weight loss and dysphasia. Imaging was completed a CT soft tissue of neck shows large necrotic squamous cell carcinoma involving the left and right floor of mouth, oropharynx, hypopharynx, larynx oncology has been consulted is currently following status post ultrasound-guided biopsy currently pathology is pending. Current plan is to proceed with combination of chemotherapy radiation therapy after his teeth have been removed. GI has been consulted for PEG placement patient is previously failed a swallow evaluation. At time evaluation patient with noted muscle voice is able to swallow his saliva however not able to tolerate solids or liquids. Discuss possible plan for PEG placement I reviewed risk/benefits of both sedation and procedure patient verbalized understanding per his request I called his [id number] Stacy Dykes I informed her of the procedure she verbalized understanding and was very grateful for the call. Review of Systems: [A 12 system, review was conducted and is negative except as noted in the HPI or here.] Past Medical History Medical History: no pertinent history Home Meds Discontinued Scripts Ferrous Sulfate* (Ferrous Sulfate*) 325 Mg Tabec, 325 MG PO DAILY for 60 Days, TAB Prov:WILNER BURDEN MD 04/28/16 Docusate Sodium* (Colace*) 100 Mg Capsule, 100 MG PO BID, #60 CAP Prov:WILNER BURDEN MD 04/28/16 Pantoprazole* (Protonix*) 40 Mg Tablet.dr, 40 MG PO BID for 30 Days, TAB Prov:WILNER BURDEN MD 04/28/16 Medications Current Medications Dextrose/Sodium Chloride 1,000 ml @ 75 mls/hr [id number] IV Last administered on 10/18/18at 06:12; Admin Dose 75 MLS/HR; Start 10/15/18 at 16:09 IV Flush (NS 3 ml) 3 ml PER PROTOCOL IV ; Start 10/15/18 at 16:30 Ondansetron HCl (Zofran Inj) 4 mg Q6H PRN IV NAUSEA/VOMITING; Start 10/15/18 at 16:30 Morphine Sulfate (morphine) 2 mg Q4H PRN IV .SEVERE PAIN 7-10; Start 10/15/18 at 16:30 Pantoprazole (Protonix Iv) 40 mg DAILY@06 IV Last administered on 10/18/18at 06:12; Admin Dose 40 MG; Start 10/16/18 at 06:00 Nicotine (Nicoderm 21 Mg/ 24hr) 1 patch DAILY TRANSDERM Last administered on 10/18/18at 08:29; Admin Dose 1 PATCH; Start 10/16/18 at 09:00 Fluconazole/ Sodium Chloride 50 ml @ 50 mls/hr Q24H IVPB Last administered on 10/17/18at 18:17; Admin Dose 50 MLS/HR; Start 10/15/18 at 17:30 Heparin Sodium (Porcine) (Heparin (5000 Units/1ml)) 5,000 unit BID SC Last administered on 10/17/18at 09:04; Admin Dose 5,000 UNIT; Start 10/16/18 at 21:00; Status Hold Ferric Sodium Gluconate Complex 125 mg/Sodium Chloride 100 ml @ 100 mls/hr DAILY@1300 IVPB Last administered on 10/17/18at 14:01; Admin Dose 100 MLS/HR; Start 10/17/18 at 13:00; Stop 10/19/18 at 13:59 Allergies: Coded Allergies: No Known Allergy (Unverified , 11/16/15) Past Surgical History Past Surgical Hx: no surgical history Social History Alcohol Use: occasionally Smoking Status: Heavy tobacco smoker Drug Use: none Exam/Review of Systems Exam Vitals Vital Signs Date Temp Pulse Resp B/P (MAP) Pulse Ox O2 O2 Flow FiO2 Time Delivery Rate 10/18/18 98.2 64 17 120/66 100 07:16 (84) 10/16/18 Room Air 01:57 Intake and Output 10/17/18 10/17/18 10/18/18 1515:00 23:00 07:00 IntakeIntake Total 625 ml 1000 ml OutputOutput Total 600 ml BalanceBalance 625 ml 400 ml Exam PHYSICAL EXAMINATION: GENERAL: Cachectic alert and oriented male, malnourished SKIN: Growth located near right eye. EYES: Pupils equal reactive to light. NECK: Large right sided mass noted CHEST: Inspection within normal limits. CARDIOVASCULAR: Heart: Regular rate and rhythm. RESPIRATORY: Lungs clear to auscultation. GASTROINTESTINAL AND LIVER: Abdomen: Thin, Soft, non tenderness, non-distended, no hernias, no masses, no organomegaly, no ascites, no guarding, no rebound tenderness, normoactive bowel sounds. Rectal: Deferred. Results Result Diagram: 10/18/18 0435 10/18/18 0435 Results 24hrs Laboratory Tests Test 10/17/18 15:11 10/18/18 04:35 10/18/18 07:53 Prothrombin Time 12.0 Prothrombin Time Ratio 0.9 INR International Normalized Ratio 0.88 Activated Partial Thromboplast Time 55.9 H White Blood Count 5.1 Red Blood Count 3.80 L Hemoglobin 8.8 L Hematocrit 29.0 L Mean Corpuscular Volume 76.3 L Mean Corpuscular Hemoglobin 23.2 L Mean Corpuscular Hemoglobin Concent 30.3 L Red Cell Distribution Width 18.8 H Platelet Count 257 Mean Platelet Volume 9.3 Immature Granulocytes % 0.400 Neutrophils % 76.8 Lymphocytes % 14.8 L Monocytes % 7.8 Eosinophils % 0.0 Basophils % 0.2 Nucleated Red Blood Cells % 0.0 Immature Granulocytes # 0.020 Neutrophils # 3.9 Lymphocytes # 0.8 Monocytes # 0.4 Eosinophils # 0.0 Basophils # 0.0 Nucleated Red Blood Cells # 0.0 Sodium Level 133 L Potassium Level 3.5 Chloride Level 94 L Carbon Dioxide Level 30 Anion Gap 9 Blood Urea Nitrogen 9 Creatinine 0.56 L Est Glomerular Filtrat Rate mL/min > 60 Glucose Level 102 Calcium Level 8.7 Phosphorus Level 2.8 Magnesium Level 2.0 Bedside Glucose 106 Medications Medication Current Medications Dextrose/Sodium Chloride 1,000 ml @ 75 mls/hr [id number] IV Last administered on 10/18/18at 06:12; Admin Dose 75 MLS/HR; Start 10/15/18 at 16:09 IV Flush (NS 3 ml) 3 ml PER PROTOCOL IV ; Start 10/15/18 at 16:30 Ondansetron HCl (Zofran Inj) 4 mg Q6H PRN IV NAUSEA/VOMITING; Start 10/15/18 at 16:30 Morphine Sulfate (morphine) 2 mg Q4H PRN IV .SEVERE PAIN 7-10; Start 10/15/18 at 16:30 Pantoprazole (Protonix Iv) 40 mg DAILY@06 IV Last administered on 10/18/18at 06:12; Admin Dose 40 MG; Start 10/16/18 at 06:00 Nicotine (Nicoderm 21 Mg/ 24hr) 1 patch DAILY TRANSDERM Last administered on 10/18/18 08:29; Admin Dose 1 PATCH; Start 10/16/18 at 09:00 Fluconazole/ Sodium Chloride 50 ml @ 50 mls/hr Q24H IVPB Last administered on 10/17/18 18:17; Admin Dose 50 MLS/HR; Start 10/15/18 at 17:30 Heparin Sodium (Porcine) (Heparin (5000 Units/1ml)) 5,000 unit BID SC Last administered on 10/17/18 09:04; Admin Dose 5,000 UNIT; Start 10/16/18 at 21:00; Status Hold Ferric Sodium Gluconate Complex 125 mg/Sodium Chloride 100 ml @ 100 mls/hr DAILY@1300 IVPB Last administered on 10/17/18at 14:01; Admin Dose 100 MLS/HR; Start 10/17/18 at 13:00; Stop 10/19/18 at 13:59 GEE FU Oct 18, 2018 12:41
[2018-10-18] MEDS: SOD FERRIC GLUC COMPLX 125 MG in SOD CHLORIDE 0.9% 100 ML IVPB SCH (13:21)
[2018-10-18 13:57] VITALS: BP 126/76; PULSE 72; RESP 17
--- NOTE | 2018-10-18 14:32 | CONS ---
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, locally advanced -need tissue diagnosis, pt is now s/p bx. will follow up results -CT chest is negative for mets -once we have pathology back on biopsy, if confirmed to be SCCa of head and neck would most likely receive a combine chemotherapy RT approach with cisplatin give every 3 weeks IV while on radiation -needs dental evaluation -needs mediport and PEG tube -nutrition evaluation -for iron def anemia agree with IV iron given that pt cannot drink/ or eat Consultation Date/Type/Reason Admit Date/Time Oct 15, 2018 at 15:38 Initial Consult Date 10/18/18 Type of Consult oncology Reason for Consultation head and neck cancer Requesting Provider: REGI AYALA Date/Time of Note DATE: 10/18/18 TIME: 14:30 24 HR Interval Summary Free Text/Dictation to get bx today Exam/Review of Systems Exam Vitals Vital Signs Date Temp Pulse Resp B/P (MAP) Pulse Ox O2 O2 Flow FiO2 Time Delivery Rate 10/18/18 97.8 72 17 126/76 6 13:57 (93) 10/18/18 Room Air 10:20 Intake and Output 10/17/18 10/17/18 10/18/18 1515:00 23:00 07:00 IntakeIntake Total 625 ml 1000 ml OutputOutput Total 600 ml BalanceBalance 625 ml 400 ml Constitutional: alert, oriented Psych: no complaints Head: normocephalic Eyes: nl conjunctiva ENMT: nl external ears & nose Neck: supple Respiratory: clear to auscultation Cardiovascular: regular rate and rhythm Gastrointestinal: soft Musculoskeletal: nl extremities to inspection Results Result Diagram: 10/18/18 0435 10/18/18 0435 Results 24hrs Laboratory Tests Test 10/17/18 15:11 10/18/18 04:35 10/18/18 07:53 Prothrombin Time 12.0 Prothrombin Time Ratio 0.9 INR International Normalized Ratio 0.88 Activated Partial Thromboplast Time 55.9 H White Blood Count 5.1 Red Blood Count 3.80 L Hemoglobin 8.8 L Hematocrit 29.0 L Mean Corpuscular Volume 76.3 L Mean Corpuscular Hemoglobin 23.2 L Mean Corpuscular Hemoglobin Concent 30.3 L Red Cell Distribution Width 18.8 H Platelet Count 257 Mean Platelet Volume 9.3 Immature Granulocytes % 0.400 Neutrophils % 76.8 Lymphocytes % 14.8 L Monocytes % 7.8 Eosinophils % 0.0 Basophils % 0.2 Nucleated Red Blood Cells % 0.0 Immature Granulocytes # 0.020 Neutrophils # 3.9 Lymphocytes # 0.8 Monocytes # 0.4 Eosinophils # 0.0 Basophils # 0.0 Nucleated Red Blood Cells # 0.0 Sodium Level 133 L Potassium Level 3.5 Chloride Level 94 L Carbon Dioxide Level 30 Anion Gap 9 Blood Urea Nitrogen 9 Creatinine 0.56 L Est Glomerular Filtrat Rate mL/min > 60 Glucose Level 102 Calcium Level 8.7 Phosphorus Level 2.8 Magnesium Level 2.0 Bedside Glucose 106 Medications Medication Current Medications Dextrose/Sodium Chloride 1,000 ml @ 75 mls/hr [id number] IV Last administered on 10/18/18at 06:12; Admin Dose 75 MLS/HR; Start 10/15/18 at 16:09 IV Flush (NS 3 ml) 3 ml PER PROTOCOL IV ; Start 10/15/18 at 16:30 Ondansetron HCl (Zofran Inj) 4 mg Q6H PRN IV NAUSEA/VOMITING; Start 10/15/18 at 16:30 Morphine Sulfate (morphine) 2 mg Q4H PRN IV .SEVERE PAIN 7-10; Start 10/15/18 at 16:30 Pantoprazole (Protonix Iv) 40 mg DAILY@06 IV Last administered on 10/18/18at 06:12; Admin Dose 40 MG; Start 10/16/18 at 06:00 Nicotine (Nicoderm 21 Mg/ 24hr) 1 patch DAILY TRANSDERM Last administered on 10/18/18at 08:29; Admin Dose 1 PATCH; Start 10/16/18 at 09:00 Fluconazole/ Sodium Chloride 50 ml @ 50 mls/hr Q24H IVPB Last administered on 10/17/18at 18:17; Admin Dose 50 MLS/HR; Start 10/15/18 at 17:30 Heparin Sodium (Porcine) (Heparin (5000 Units/1ml)) 5,000 unit BID SC Last administered on 10/17/18at 09:04; Admin Dose 5,000 UNIT; Start 10/16/18 at 21:00; Status Hold Ferric Sodium Gluconate Complex 125 mg/Sodium Chloride 100 ml @ 100 mls/hr DAILY@1300 IVPB Last administered on 10/18/18at 13:21; Admin Dose 100 MLS/HR; Start 10/17/18 at 13:00; Stop 10/19/18 at 13:59 Cefazolin Sodium 50 ml @ 100 mls/hr BRAKE REPAIRER TO GI LAB IVPB ; Start 10/19/18 at 12:30; Stop 10/19/18 at 12:31 NICOLE DELGADO M.D. Oct 18, 2018 14:32
[2018-10-18] MEDS: FLUCONAZOLE 100 MG/50 ML (PMX) 50 ML IVPB SCH (17:54)
[2018-10-18 19:17] VITALS: BP 113/72; PULSE 62; RESP 18
[2018-10-19] VITALS (19 sets, daily range): BP systolic 103–143; BP diastolic 65–82; PULSE 16–108; RESP 16–36
[2018-10-19] MEDS: DEXTROSE 5%-0.45% NACL 1,000 ML IV SCH ×3 (01:06→23:31)
[2018-10-19] MEDS: PANTOPRAZOLE 40 MG INJ IV SCH (05:20)
--- NOTE | 2018-10-19 07:00 | PN ---
DATE: 10/18/2018 REQUESTING PHYSICIAN: Dr. Regi Díaz Thank you Dr. Díaz for this consultation. HISTORY OF PRESENT ILLNESS: This is a well-developed, cachectic elderly man without significant past medical history who was admitted with swallowing problem over two months with significant weight loss. The patient also developed a swelling on the left side of his neck. He had a CT of the soft tissue of the neck that revealed increased soft tissue density in the floor of the mouth and base of the tongue with suggestion of collection of air and fluid and may represent a squamous cell carcinoma as well as c possible infectious inflammatory process, possible candidiasis. The patient underwent ultrasound of left neck biopsy. He is being seen by Dr. Ross in oncology consultation as well as by gastroenterology. The patient underwent CT of the chest that revealed no metastasis but emphysema. There were multiple of less than 5 mm indeterminate noncalcified lung nodules, not present on prior study from 2016. He also has compression fracture of thoracic and lumbar spine, hyperdense cyst upper pole of the left kidney, and renal cysts. The patient underwent swallow evaluation and did not pass it. He was started on IV fluconazole for possibility of oropharyngeal candidiasis. The patient was evaluated for PEG placement. Consent was signed and he will be having PEG placement hopefully tomorrow. SOCIAL HISTORY: The patient is a long-term smoker. He drinks alcohol socially. No drugs. He lives at home with his family. PHYSICAL EXAMINATION: GENERAL: This is a well-developed, cachectic, very pleasant elderly man who is alert, in no distress. HEENT: Head atraumatic, normocephalic. Sclerae anicteric. Buccal mucosa pink. NECK: Supple. The patient has a large mass on the left side of his neck. CHEST: Rise symmetrical. Breath sounds clear. HEART: S1, S2. ABDOMEN: Soft, bowel sounds present. SKIN: Without cyanosis. DIAGNOSTIC IMPRESSION: This is a 63-year-old cachectic man who was admitted with the above-mentioned symptoms and currently on antifungal therapy for possible oropharyngeal candidiasis. The patient is being seen by multiple consultants. He is status post left mass biopsy today. Pathology is pending. He is scheduled for PEG placement with EGD. We are going to keep him on fluconazole for now and await for reports of EGD that will confirm or ejects the diagnosis of esophageal candidiasis. If he has candidiasis then once he has PEG we will change change Diflucan to PO. Above was discussed with Dr. Hale who was covering for Dr. Morin. Dictated By: BIJU KWONG TAX ANALYST for RICHMOND MORIN MD NI/NTS Conf#: [id number] DID#: [id number] CC: REGI DÍAZ MD; DARRON KULKARNI MD;*EndCC* MTDD
[2018-10-19] MEDS: NICOTINE (21 MG/24 HR) PATCH TRANSDERM SCH (09:26)
[2018-10-19] MEDS ORDERED: LIDOCAINE 1%/EPI (1:100,000) (MDV) 20 ML ONE (09:29)
[2018-10-19] MEDS ORDERED: HEPARIN 1000 UNITS/ML 10 ML INJ ONE (09:29)
--- NOTE | 2018-10-19 09:37 | PREAC ---
Date/Time of Note Date/Time of Note DATE: 10/19/18 TIME: 09:35 Anesthesia Eval and Record Evaluation Time Pre-Procedure Interview DATE: 10/19/18 TIME: 09:35 Age 63 Sex male NPO: 8 hrs Preoperative diagnosis SCC head and neck, oropharyngeal candiasis Planned procedure porrta cath Past Medical History Past Medical History: Includes Pulm: Smoking Hx Heme: Anemia, Other (SCC head and neck) Psych: Depression Surgery & Anesthesia Issues No known issue Meds Anticoagulation: No Beta Regina within 24 hr: No Reason Beta Regina not given: Pt. not on B-Regina Discontinued Scripts Ferrous Sulfate* (Ferrous Sulfate*) 325 Mg Tabec, 325 MG PO DAILY for 60 Days, TAB Prov:WILNER BURDEN MD 04/28/16 Docusate Sodium* (Colace*) 100 Mg Capsule, 100 MG PO BID, #60 CAP Prov:WILNER BURDEN MD 04/28/16 Pantoprazole* (Protonix*) 40 Mg Tablet.dr, 40 MG PO BID for 30 Days, TAB Prov:WILNER BURDEN MD 04/28/16 Current Medications Dextrose/Sodium Chloride 1,000 ml @ 75 mls/hr [id number] IV Last administered on 10/19/18at 01:06; Admin Dose 75 MLS/HR; Start 10/15/18 at 16:09 IV Flush (NS 3 ml) 3 ml PER PROTOCOL IV ; Start 10/15/18 at 16:30 Ondansetron HCl (Zofran Inj) 4 mg Q6H PRN IV NAUSEA/VOMITING; Start 10/15/18 at 16:30 Morphine Sulfate (morphine) 2 mg Q4H PRN IV .SEVERE PAIN 7-10; Start 10/15/18 at 16:30 Pantoprazole (Protonix Iv) 40 mg DAILY@06 IV Last administered on 10/19/18at 05:20; Admin Dose 40 MG; Start 10/16/18 at 06:00 Nicotine (Nicoderm 21 Mg/ 24hr) 1 patch DAILY TRANSDERM Last administered on 10/19/18at 09:26; Admin Dose 1 PATCH; Start 10/16/18 at 09:00 Fluconazole/ Sodium Chloride 50 ml @ 50 mls/hr Q24H IVPB Last administered on 10/18/18at 17:54; Admin Dose 50 MLS/HR; Start 10/15/18 at 17:30 Heparin Sodium (Porcine) (Heparin (5000 Units/1ml)) 5,000 unit BID SC Last administered on 10/17/18at 09:04; Admin Dose 5,000 UNIT; Start 10/16/18 at 21:00; Status Hold Ferric Sodium Gluconate Complex 125 mg/Sodium Chloride 100 ml @ 100 mls/hr DAILY@1300 IVPB Last administered on 10/18/18at 13:21; Admin Dose 100 MLS/HR; Start 10/17/18 at 13:00; Stop 10/19/18 at 13:59 Cefazolin Sodium 50 ml @ 100 mls/hr 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 IVPB ; Start 10/19/18 at 12:30; Stop 10/19/18 at 12:31 Potassium Chloride 100 ml @ 50 mls/hr Q2H IVPB ; Start 10/19/18 at 10:00; Stop 10/19/18 at 17:59 Meds reviewed: Yes Allergies Coded Allergies: No Known Allergy (Unverified , 11/16/15) Allergies Reviewed: Yes Labs/Studies Labs Reviewed: Reviewed by anesthesiologist Result Diagram: 10/19/18 0425 10/19/18 0425 Laboratory Tests 10/19/18 04:25 test: N/A Pre-procedure Exam Last vitals Vital Signs Date Temp Pulse Resp B/P (MAP) Pulse Ox O2 O2 Flow FiO2 Time Delivery Rate 10/19/18 98.4 67 18 117/69 99 Room Air 07:57 (85) Airway: Adequate mouth opening (decreased oral opening, enlarged neck, left side of neck larger than right) Mallampati: Mallampati III Teeth: Normal (poor dentition) Lung: Normal Heart: Normal ASA Physical Status ASA physical status: 3 Emergency: None Planned Anesthetic General/MAC: MAC, TIVA Planned Pain Management Parenteral pain med, Local by surgeon Pre-operative Attestations Prior to commencing anesthesia and surgery, the patient was re-evaluated, there was verification of: *The patient's identity *The results of appropriate recent lab work and preoperative vital signs *The above evaluation not changing prior to induction *Anesthetic plan, risk benefits, alternative and complications discussed with patient/family; questions answered; patient/family understands, accepts and wishes to proceed. SANTIAGO JOSHI Oct 19, 2018 09:37
[2018-10-19] MEDS ORDERED: CEFAZOLIN 1 GM/50 ML (PMX) 0 ML IVPB ONE (09:48)
[2018-10-19] MEDS ORDERED: MIDAZOLAM 1 MG/ML 2 ML INJ ONE (09:48)
[2018-10-19] MEDS ORDERED: FENTAnyl 50 MCG/ML VIAL ONE ×2 (09:48→15:30)
[2018-10-19] MEDS ORDERED: PROPOFOL 20 ML ONE ×2 (09:48→15:30)
[2018-10-19] MEDS ORDERED: POLYMYXIN/BACITRACIN 1L IRRIG IRR ONE (10:00)
[2018-10-19] MEDS ORDERED: CEFAZOLIN 1 GM/50 ML (PMX) 50 ML IVPB ONE (10:16)
--- NOTE | 2018-10-19 11:30 | HPN ---
Date/Time of Note Date/Time of Note DATE: 10/19/18 TIME: 11:30 Interval H&P Admission Note Pt. seen H&P reviewed: No system changes MANOJ MARKS MD Oct 19, 2018 11:30
[2018-10-19] MEDS ORDERED: CEFAZOLIN 1 GM/50 ML (PMX) 50 ML IVPB SCH (12:30)
[2018-10-19] MEDS: POTASSIUM CHLORIDE 100 ML IVPB SCH ×4 (13:07→21:30)
--- NOTE | 2018-10-19 13:29 | CONS ---
Assessment/Plan Assessment/Plan Hospital Course (Demo Recall) Patient is off the floor for Port-A-Cath placement. No acute events per report no fevers WBC today 5.4 with neutrophils 79.8 BUN 7 creatinine 0.53 Assessment: 1. Dysphagia with possible oropharyngeal candidiasis 2. Left neck mass likely squamous cell carcinoma status post biopsy 3. Cachexia 4. Chronic tobacco use Plan: Continue present care, continue on antifungal therapy, await for EGD, follow biopsy results Consultation Date/Type/Reason Admit Date/Time Oct 15, 2018 at 15:38 Initial Consult Date 10/18/18 Type of Consult id Requesting Provider: REGI AYALA Date/Time of Note DATE: 10/19/18 TIME: 13:27 Exam/Review of Systems Exam Vitals Vital Signs Date Temp Pulse Resp B/P (MAP) Pulse Ox O2 O2 Flow FiO2 Time Delivery Rate 10/19/18 97.6 92 18 143/66 95 12:50 (91) 10/19/18 Room Air 12:03 Intake and Output 10/18/18 10/18/18 10/19/18 1515:00 23:00 07:00 IntakeIntake Total 100 ml 700 ml 645 ml OutputOutput Total 200 ml 550 ml 650 ml BalanceBalance -100 ml 150 ml -5 ml Results Result Diagram: 10/19/18 0425 10/19/18 0425 Results 24hrs Laboratory Tests Test 10/18/18 14:25 10/19/18 04:25 Hemoglobin 9.1 L 8.9 L Hematocrit 29.3 L 29.4 L White Blood Count 5.4 Red Blood Count 3.87 L Mean Corpuscular Volume 76.0 L Mean Corpuscular Hemoglobin 23.0 L Mean Corpuscular Hemoglobin Concent 30.3 L Red Cell Distribution Width 18.9 H Platelet Count 256 Mean Platelet Volume 9.7 Immature Granulocytes % 0.400 Neutrophils % 79.8 H Lymphocytes % 11.3 L Monocytes % 8.3 Eosinophils % 0.0 Basophils % 0.2 Nucleated Red Blood Cells % 0.0 Immature Granulocytes # 0.020 Neutrophils # 4.3 Lymphocytes # 0.6 L Monocytes # 0.5 Eosinophils # 0.0 Basophils # 0.0 Nucleated Red Blood Cells # 0.0 Prothrombin Time 12.4 Prothrombin Time Ratio 1.0 INR International Normalized Ratio 0.91 Activated Partial Thromboplast Time 44.3 H Sodium Level 131 L Potassium Level 3.0 L Chloride Level 92 L Carbon Dioxide Level 30 Anion Gap 9 Blood Urea Nitrogen 7 Creatinine 0.53 L Est Glomerular Filtrat Rate mL/min > 60 Glucose Level 91 Calcium Level 8.5 Phosphorus Level 2.6 Magnesium Level 1.9 Medications Medication Current Medications Dextrose/Sodium Chloride 1,000 ml @ 75 mls/hr [id number] IV Last administered on 10/19/18 01:06; Admin Dose 75 MLS/HR; Start 10/15/18 at 16:09 IV Flush (NS 3 ml) 3 ml PER PROTOCOL IV ; Start 10/15/18 at 16:30 Ondansetron HCl (Zofran Inj) 4 mg Q6H PRN IV NAUSEA/VOMITING; Start 10/15/18 at 16:30 Morphine Sulfate (morphine) 2 mg Q4H PRN IV .SEVERE PAIN 7-10; Start 10/15/18 at 16:30 Pantoprazole (Protonix Iv) 40 mg DAILY@06 IV Last administered on 10/19/18 05:20; Admin Dose 40 MG; Start 10/16/18 at 06:00 Nicotine (Nicoderm 21 Mg/ 24hr) 1 patch DAILY TRANSDERM Last administered on 10/19/18 09:26; Admin Dose 1 PATCH; Start 10/16/18 at 09:00 Fluconazole/ Sodium Chloride 50 ml @ 50 mls/hr Q24H IVPB Last administered on 10/18/18 17:54; Admin Dose 50 MLS/HR; Start 10/15/18 at 17:30 Heparin Sodium (Porcine) (Heparin (5000 Units/1ml)) 5,000 unit BID SC Last administered on 10/17/18at 09:04; Admin Dose 5,000 UNIT; Start 10/16/18 at 21:00; Status Hold Ferric Sodium Gluconate Complex 125 mg/Sodium Chloride 100 ml @ 100 mls/hr DAILY@1300 IVPB Last administered on 10/18/18 13:21; Admin Dose 100 MLS/HR; Start 10/17/18 at 13:00; Stop 10/19/18 at 13:59 Potassium Chloride 100 ml @ 50 mls/hr Q2H IVPB Last administered on 10/19/18at 13:07; Admin Dose 50 MLS/HR; Start 10/19/18 at 10:00; Stop 10/19/18 at 17:59 BIJU KWONG NP Oct 19, 2018 13:29
--- NOTE | 2018-10-19 14:02 | PAC ---
Date/Time of Note Date/Time of Note DATE: 10/19/18 TIME: 14:02 Post-Anesthesia Notes Post-Anesthesia Note Last documented vital signs Vital Signs Date Temp Pulse Resp B/P (MAP) Pulse Ox O2 O2 Flow FiO2 Time Delivery Rate 10/19/18 97.6 92 18 143/66 95 12:50 (91) 10/19/18 Room Air 12:03 Activity: WNL Respiratory function: WNL Cardiovascular function: WNL Mental status: Baseline Pain reasonably controlled: Yes Hydration appropriate: Yes Nausea/Vomiting absent: Yes SANTIAGO JOSHI Oct 19, 2018 14:02
--- NOTE | 2018-10-19 14:06 | PN ---
Date/Time of Note Date/Time of Note DATE: 10/19/18 TIME: 14:04 Objective Vitals Vital Signs Date Temp Pulse Resp B/P (MAP) Pulse Ox O2 O2 Flow FiO2 Time Delivery Rate 10/19/18 97.6 92 18 143/66 95 12:50 (91) 10/19/18 Room Air 12:03 Intake and Output 10/18/18 10/18/18 10/19/18 1515:00 23:00 07:00 IntakeIntake Total 100 ml 700 ml 645 ml OutputOutput Total 200 ml 550 ml 650 ml BalanceBalance -100 ml 150 ml -5 ml Results Result Diagram: 10/19/18 0425 10/19/18 0425 Medications Medications Current Medications Dextrose/Sodium Chloride 1,000 ml @ 75 mls/hr [id number] IV Last administered on 10/19/18at 01:06; Admin Dose 75 MLS/HR; Start 10/15/18 at 16:09 IV Flush (NS 3 ml) 3 ml PER PROTOCOL IV ; Start 10/15/18 at 16:30 Ondansetron HCl (Zofran Inj) 4 mg Q6H PRN IV NAUSEA/VOMITING; Start 10/15/18 at 16:30 Morphine Sulfate (morphine) 2 mg Q4H PRN IV .SEVERE PAIN 7-10; Start 10/15/18 at 16:30 Pantoprazole (Protonix Iv) 40 mg DAILY@06 IV Last administered on 10/19/18 05:20; Admin Dose 40 MG; Start 10/16/18 at 06:00 Nicotine (Nicoderm 21 Mg/ 24hr) 1 patch DAILY TRANSDERM Last administered on 10/19/18 09:26; Admin Dose 1 PATCH; Start 10/16/18 at 09:00 Fluconazole/ Sodium Chloride 50 ml @ 50 mls/hr Q24H IVPB Last administered on 10/18/18 17:54; Admin Dose 50 MLS/HR; Start 10/15/18 at 17:30 Heparin Sodium (Porcine) (Heparin (5000 Units/1ml)) 5,000 unit BID SC Last administered on 10/17/18 09:04; Admin Dose 5,000 UNIT; Start 10/16/18 at 21:00; Status Hold Potassium Chloride 100 ml @ 50 mls/hr Q2H IVPB Last administered on 3/13/19at 13:07; Admin Dose 50 MLS/HR; Start 10/19/18 at 10:00; Stop 10/19/18 at 17:59 VTE Prophylaxis Risk score (from Ns)>0 risk: 4 SCD applied (from Ns): Yes Lines/Catheters IV Catheter Type: Juárez in Place: No Assessment/Plan Hospital Course Subjective pending EGD/peg placement Objective Physical exam General: Patient is laying in bed and answers questions appropriately Mentation: Patient is alert and oriented 4, Head: Normocephalic atraumatic Eyes: EOMI, pupils reactive to light Neck: Supple, very mildly tender, prominent lymph nodes Respiratory: Clear to auscultation bilaterally Cardiovascular: regular rate, no obvious murmurs Gastrointestinal: non-tender to palpation, bowel sounds heard. Neurological: Moves all extremities spontaneously Skin: No new skin lesions Assessment/Plan 1. Dysphagia, solid and liquids - CT scan suspicious for SCC. biopsy done, results pending - Dr. Ortiz ENT, saw patient, not surgical candidate, but ok for lymph node biopsy of level 2 lymph nodes - Fluconazole IV on board. Thrush on tongue and palate not appreciate after provided oral care - Discussed potential need for PEG tube based on plan of care. Will await biopsy results, IVF and TPN to cont - Oncology consultation placed given high suspicion for SCC, pending biopsy results 2. Anemia, iron deficiency - IV iron replacement - will need PO when able to tolerate 3. Tobacco abuse - nicotine patch Dental issues -will need removal or addressing before DC and prior to initiate chemo -appt made for 10/25 at [facility] 4. Severe protein malnutrition Oral thrush -On IV fluconazole -ID consulted 5. Disposition -biopsy results pending -mediport placed, peg pending today, will need auth for tube feed liquids -getting auth for outpatient oncology f/u REGI AYALA Oct 19, 2018 14:06
--- NOTE | 2018-10-19 15:27 | PREAC ---
Date/Time of Note Date/Time of Note DATE: 10/19/18 TIME: 15:24 Anesthesia Eval and Record Evaluation Time Pre-Procedure Interview DATE: 10/19/18 TIME: 15:24 Age 63 Sex male NPO: 8 hrs Preoperative diagnosis dysphagia Planned procedure PEG placement Past Medical History Past Medical History: Includes Pulm: Smoking Hx Musculoskeletal: Other (Neck mass) Heme: Anemia Surgery & Anesthesia Issues No known issue Meds Anticoagulation: No Beta Regina within 24 hr: No Reason Beta Regina not given: Pt. not on B-Regina Discontinued Scripts Ferrous Sulfate* (Ferrous Sulfate*) 325 Mg Tabec, 325 MG PO DAILY for 60 Days, TAB Prov:WILNER BURDEN MD 04/28/16 Docusate Sodium* (Colace*) 100 Mg Capsule, 100 MG PO BID, #60 CAP Prov:WILNER BURDEN MD 04/28/16 Pantoprazole* (Protonix*) 40 Mg Tablet.dr, 40 MG PO BID for 30 Days, TAB Prov:WILNER BURDEN MD 04/28/16 Current Medications Dextrose/Sodium Chloride 1,000 ml @ 75 mls/hr [id number] IV Last administered on 10/19/18at 01:06; Admin Dose 75 MLS/HR; Start 10/15/18 at 16:09 IV Flush (NS 3 ml) 3 ml PER PROTOCOL IV ; Start 10/15/18 at 16:30 Ondansetron HCl (Zofran Inj) 4 mg Q6H PRN IV NAUSEA/VOMITING; Start 10/15/18 at 16:30 Morphine Sulfate (morphine) 2 mg Q4H PRN IV .SEVERE PAIN 7-10; Start 10/15/18 at 16:30 Pantoprazole (Protonix Iv) 40 mg DAILY@06 IV Last administered on 10/19/18at 05:20; Admin Dose 40 MG; Start 10/16/18 at 06:00 Nicotine (Nicoderm 21 Mg/ 24hr) 1 patch DAILY TRANSDERM Last administered on 10/19/18at 09:26; Admin Dose 1 PATCH; Start 10/16/18 at 09:00 Fluconazole/ Sodium Chloride 50 ml @ 50 mls/hr Q24H IVPB Last administered on 10/18/18at 17:54; Admin Dose 50 MLS/HR; Start 10/15/18 at 17:30 Heparin Sodium (Porcine) (Heparin (5000 Units/1ml)) 5,000 unit BID SC Last administered on 10/17/18at 09:04; Admin Dose 5,000 UNIT; Start 10/16/18 at 21:00; Status Hold Potassium Chloride 100 ml @ 50 mls/hr Q2H IVPB Last administered on 10/19/18at 13:07; Admin Dose 50 MLS/HR; Start 10/19/18 at 10:00; Stop 10/19/18 at 17:59 Meds reviewed: Yes Allergies Coded Allergies: No Known Allergy (Unverified , 11/16/15) Allergies Reviewed: Yes Labs/Studies Labs Reviewed: Reviewed by anesthesiologist Result Diagram: 10/19/18 0425 10/19/18 0425 Laboratory Tests 10/19/18 04:25 test: N/A Studies: ECG (sr), CXR (nl) Pre-procedure Exam Last vitals Vital Signs Date Temp Pulse Resp B/P (MAP) Pulse Ox O2 O2 Flow FiO2 Time Delivery Rate 10/19/18 97.6 92 18 143/66 95 12:50 (91) 10/19/18 Room Air 12:03 Airway: Adequate mouth opening Mallampati: Mallampati II Teeth: Abnormal (upper denture) Lung: Normal Heart: Normal ASA Physical Status ASA physical status: 2 Emergency: None Planned Anesthetic General/MAC: MAC Planned Pain Management Parenteral pain med Pre-operative Attestations Prior to commencing anesthesia and surgery, the patient was re-evaluated, there was verification of: *The patient's identity *The results of appropriate recent lab work and preoperative vital signs *The above evaluation not changing prior to induction *Anesthetic plan, risk benefits, alternative and complications discussed with patient/family; questions answered; patient/family understands, accepts and wishes to proceed. CHAPARRITA ROTH MD Oct 19, 2018 15:27
[2018-10-19] MEDS ORDERED: ONDANSETRON 4 MG INJ IV PRN (15:30)
[2018-10-19] MEDS: SOD FERRIC GLUC COMPLX 125 MG in SOD CHLORIDE 0.9% 100 ML IVPB SCH (16:41)
--- NOTE | 2018-10-19 16:41 | CONS ---
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, locally advanced -need tissue diagnosis, ENT has been consulted -for US guided biopsy of cervical LN mass -CT chest is negative for mets -once we have pathology back on biopsy, if confirmed to be SCCa of head and neck would most likely receive a combine chemotherapy RT approach with cisplatin give every 3 weeks IV while on radiation -needs dental evaluation (has been set up at [facility]) -s/p mediport and PEG tube -nutrition evaluation and feeds -for iron def anemia agree with IV iron given that pt cannot drink/ or eat Consultation Date/Type/Reason Admit Date/Time Oct 15, 2018 at 15:38 Initial Consult Date 10/18/18 Requesting Provider: REGI AYALA Date/Time of Note DATE: 10/19/18 TIME: 16:41 24 HR Interval Summary Free Text/Dictation getting PEG Exam/Review of Systems Exam Vitals Vital Signs Date Temp Pulse Resp B/P (MAP) Pulse Ox O2 O2 Flow FiO2 Time Delivery Rate 10/19/18 92 18 117/78 94 Room Air 16:29 (91) 10/19/18 98.9 16:05 10/19/18 10 15:50 Intake and Output 10/18/18 10/18/18 10/19/18 1515:00 23:00 07:00 IntakeIntake Total 100 ml 700 ml 645 ml OutputOutput Total 200 ml 550 ml 650 ml BalanceBalance -100 ml 150 ml -5 ml Results Result Diagram: 10/19/18 0425 10/19/18 0425 Results 24hrs Laboratory Tests Test 10/19/18 04:25 White Blood Count 5.4 Red Blood Count 3.87 L Hemoglobin 8.9 L Hematocrit 29.4 L Mean Corpuscular Volume 76.0 L Mean Corpuscular Hemoglobin 23.0 L Mean Corpuscular Hemoglobin Concent 30.3 L Red Cell Distribution Width 18.9 H Platelet Count 256 Mean Platelet Volume 9.7 Immature Granulocytes % 0.400 Neutrophils % 79.8 H Lymphocytes % 11.3 L Monocytes % 8.3 Eosinophils % 0.0 Basophils % 0.2 Nucleated Red Blood Cells % 0.0 Immature Granulocytes # 0.020 Neutrophils # 4.3 Lymphocytes # 0.6 L Monocytes # 0.5 Eosinophils # 0.0 Basophils # 0.0 Nucleated Red Blood Cells # 0.0 Prothrombin Time 12.4 Prothrombin Time Ratio 1.0 INR International Normalized Ratio 0.91 Activated Partial Thromboplast Time 44.3 H Sodium Level 131 L Potassium Level 3.0 L Chloride Level 92 L Carbon Dioxide Level 30 Anion Gap 9 Blood Urea Nitrogen 7 Creatinine 0.53 L Est Glomerular Filtrat Rate mL/min > 60 Glucose Level 91 Calcium Level 8.5 Phosphorus Level 2.6 Magnesium Level 1.9 Medications Medication Current Medications Dextrose/Sodium Chloride 1,000 ml @ 75 mls/hr [id number] IV Last administered on 10/19/18 01:06; Admin Dose 75 MLS/HR; Start 10/15/18 at 16:09 IV Flush (NS 3 ml) 3 ml PER PROTOCOL IV ; Start 10/15/18 at 16:30 Ondansetron HCl (Zofran Inj) 4 mg Q6H PRN IV NAUSEA/VOMITING; Start 10/15/18 at 16:30 Morphine Sulfate (morphine) 2 mg Q4H PRN IV .SEVERE PAIN 7-10; Start 10/15/18 at 16:30 Pantoprazole (Protonix Iv) 40 mg DAILY@06 IV Last administered on 10/19/18 05:20; Admin Dose 40 MG; Start 10/16/18 at 06:00 Nicotine (Nicoderm 21 Mg/ 24hr) 1 patch DAILY TRANSDERM Last administered on 10/19/18 09:26; Admin Dose 1 PATCH; Start 10/16/18 at 09:00 Fluconazole/ Sodium Chloride 50 ml @ 50 mls/hr Q24H IVPB Last administered on 10/18/18at 17:54; Admin Dose 50 MLS/HR; Start 10/15/18 at 17:30 Heparin Sodium (Porcine) (Heparin (5000 Units/1ml)) 5,000 unit BID SC Last administered on 10/17/18 09:04; Admin Dose 5,000 UNIT; Start 10/16/18 at 21:00; Status Hold Potassium Chloride 100 ml @ 50 mls/hr Q2H IVPB Last administered on 10/19/18 13:07; Admin Dose 50 MLS/HR; Start 10/19/18 at 10:00; Stop 10/19/18 at 17:59 Ondansetron HCl (Zofran Inj) 4 mg PACU ORDER PRN IV NAUSEA/VOMITING; Start 10/19/18 at 15:30; Stop 10/19/18 at 20:00 TRISH FARIAS Oct 19, 2018 16:41
[2018-10-19] MEDS: SUCRALFATE (100 MG/ML) 10ML CUP PO SCH ×2 (17:48→20:31)
[2018-10-19] MEDS: METOCLOPRAMIDE 10 MG INJ IV SCH ×2 (17:48→23:31)
[2018-10-19] MEDS: FLUCONAZOLE 100 MG/50 ML (PMX) 50 ML IVPB SCH (17:49)
[2018-10-19] MEDS ORDERED: PANTOPRAZOLE 40 MG INJ IV SCH (21:00)
[2018-10-19] MEDS ORDERED: LORAZEPAM 2 MG INJ IV ONE (22:00)
[2018-10-20] VITALS (16 sets, daily range): BP systolic 38–160; BP diastolic 19–107; PULSE 0–154; RESP 0–31
[2018-10-20] MEDS: DEXTROSE 5%-0.45% NACL 1,000 ML IV SCH (02:49)
[2018-10-20] MEDS ORDERED: FAMOTIDINE 20 MG INJ IV SCH (06:00)
[2018-10-20] MEDS: METOCLOPRAMIDE 10 MG INJ IV SCH (06:13)
[2018-10-20] MEDS: SUCRALFATE (100 MG/ML) 10ML CUP PO SCH (08:57)
[2018-10-20] MEDS: NICOTINE (21 MG/24 HR) PATCH TRANSDERM SCH (08:57)
--- NOTE | 2018-10-20 09:28 | PAC ---
Date/Time of Note Date/Time of Note DATE: 10/20/18 TIME: 09:27 Post-Anesthesia Notes Post-Anesthesia Note Last documented vital signs Vital Signs Date Temp Pulse Resp B/P (MAP) Pulse Ox O2 O2 Flow FiO2 Time Delivery Rate 10/20/18 98.6 68 18 160/65 96 Room Air 07:38 (96) 10/19/18 98.8 71 19 149/68 97 10 15:50 Activity: WNL Respiratory function: WNL Cardiovascular function: WNL Mental status: Baseline Pain reasonably controlled: Yes Hydration appropriate: Yes Nausea/Vomiting absent: No CHAPARRITA ROTH MD Oct 20, 2018 09:28
[2018-10-20] MEDS ORDERED: SOD CHLORIDE 0.9% 1,000 ML IV SCH (09:30)
[2018-10-20] MEDS ORDERED: RACEPINEPHRINE 2.25%(NEB) 0.5 ML AMP HHN ONE (10:05)
[2018-10-20] MEDS ORDERED: SODIUM PHOSPHATE 15 MMOL in SOD CHLORIDE 0.9% 250 ML IVPB ONE (11:00)
[2018-10-20] MEDS ORDERED: PROPOFOL 100 ML ONE (11:17)
[2018-10-20] MEDS ORDERED: PROPOFOL 100 ML IV SCH (11:30)
[2018-10-20] MEDS ORDERED: DOPamine-D5W 1.6 MG/ML 250 ML ONE (11:33)
--- NOTE | 2018-10-20 11:51 | CONS ---
Assessment/Plan Assessment/Plan Assessment/Plan (Daily) Assessment and recommendations; 1. Patient initially admitted with dysphagia likely due to extensive's, cell carcinoma of the larynx. With interval development of stridor due to tumor obstruction. 2. Acute encephalopathy. 3. Severely cachectic state. 4. COPD. 5. Status post MediPort placement as well as PEG tube placement. Continue invasive mechanical ventilation for now. Patient will need to have a tracheostomy performed. Further recommendations per oncologist. Patient will need to have a lymph node biopsy of the anterior cervical lymph node chain. Prognosis appears very poor. 40 minutes of critical care time was spent evaluating the patient exclusive of any procedures. Consultation Date/Type/Reason Admit Date/Time Oct 15, 2018 at 15:38 Date of Consultation: Oct 20, 2018 Type of Consult Pulmonary/critical care Patient is a 63-year-old male who was admitted on the of this month with complaints of dysphagia. Upon further evaluation patient was discovered to have extensive cervical lymphadenopathy. Patient also underwent MediPort placement as well as PEG tube placement yesterday. This morning the patient had respiratory event and [facility] SCULLION was called and patient was having significant respirat ory distress with altered mental status. Patient was immediately rushed over to ICU. Because of significant stridor and altered mental status patient was intubated with significant difficulty at bedside. Please see intubation note. Past medical history; 1. Recently diagnosed laryngeal cancer. 2. Severely macerated state. 3. Possibly COPD. Medications; reviewed. Allergies; none. Social history; positive for smoking. Family history, occupational history not available. Review of system; unable to be obtained. General exam prior to intubation. Patient essentially unresponsive with signi ficant stridor. Date/Time of Note DATE: 10/20/18 TIME: 11:47 Past Medical History Medical History: no pertinent history Home Meds Discontinued Scripts Ferrous Sulfate* (Ferrous Sulfate*) 325 Mg Tabec, 325 MG PO DAILY for 60 Days, TAB Prov:WILNER BURDEN MD 04/28/16 Docusate Sodium* (Colace*) 100 Mg Capsule, 100 MG PO BID, #60 CAP Prov:WILNER BURDEN MD 04/28/16 Pantoprazole* (Protonix*) 40 Mg Tablet.dr, 40 MG PO BID for 30 Days, TAB Prov:WILNER BURDEN MD 04/28/16 Medications Current Medications IV Flush (NS 3 ml) 3 ml PER PROTOCOL IV ; Start 10/15/18 at 16:30 Ondansetron HCl (Zofran Inj) 4 mg Q6H PRN IV NAUSEA/VOMITING; Start 10/15/18 at 16:30 Morphine Sulfate (morphine) 2 mg Q4H PRN IV .SEVERE PAIN 7-10 Last administered on 10/20/18 05:12; Admin Dose 2 MG; Start 10/15/18 at 16:30 Nicotine (Nicoderm 21 Mg/ 24hr) 1 patch DAILY TRANSDERM Last administered on 10/20/18 08:57; Admin Dose 1 PATCH; Start 10/16/18 at 09:00 Fluconazole/ Sodium Chloride 50 ml @ 50 mls/hr Q24H IVPB Last administered on 10/19/18 17:49; Admin Dose 50 MLS/HR; Start 10/15/18 at 17:30 Heparin Sodium (Porcine) (Heparin (5000 Units/1ml)) 5,000 unit BID SC Last administered on 10/17/18 09:04; Admin Dose 5,000 UNIT; Start 10/16/18 at 21:00; Status Hold Metoclopramide HCl (Reglan) 10 mg Q6 IV Last administered on 10/20/18 06:13; Admin Dose 10 MG; Start 10/19/18 at 18:00 Sucralfate (Carafate Susp) 1 gm QID PO Last administered on 10/20/18 08:57; Admin Dose 1 GM; Start 10/19/18 at 17:00 Famotidine (Pepcid Iv) 20 mg BID@0600,1800 IV Last administered on 10/20/18 06:13; Admin Dose 20 MG; Start 10/20/18 at 06:00 Sodium Chloride 1,000 ml @ 50 mls/hr Q20H IV Last administered on 10/20/18 09:44; Admin Dose 50 MLS/HR; Start 10/20/18 at 09:30 Sodium Phosphate 15 mmol/Sodium Chloride 255 ml @ 63.75 mls/ hr ONCE ONCE IVPB ; Start 10/20/18 at 11:00; Stop 10/20/18 at 14:59 Propofol 100 ml @ 1.032 mls/ hr Q12H IV Last administered on 3/14/19at 11:26; Admin Dose 1.032 MLS/HR; Start 10/20/18 at 11:30 Norepinephrine 250 ml @ 1.875 mls/ hr TITRATE IV ; Start 10/20/18 at 12:00 Dopamine HCl/ Dextrose 250 ml @ 2.58 mls/hr TITRATE IV ; Start 10/20/18 at 12:00; Status UNV Phenylephrine HCl 40 mg/Dextrose 250 ml @ 37.5 mls/hr TITRATE IV ; Start 10/20/18 at 12:00; Status UNV Allergies: Coded Allergies: No Known Allergy (Unverified , 11/16/15) Past Surgical History Past Surgical Hx: no surgical history Social History Alcohol Use: occasionally Smoking Status: Heavy tobacco smoker Drug Use: none Exam/Review of Systems Exam Vitals Vital Signs Date Temp Pulse Resp B/P (MAP) Pulse Ox O2 O2 Flow FiO2 Time Delivery Rate 10/20/18 154 10:36 10/20/18 28 Non 100 10:14 Rebreather Mask 10/20/18 98.6 160/65 96 07:38 (96) 10/19/18 10 15:50 Intake and Output 10/19/18 10/19/18 10/20/18 1515:00 23:00 07:00 IntakeIntake Total 870 ml 335 ml OutputOutput Total 650 ml 150 ml BalanceBalance -650 ml 720 ml 335 ml Exam HEENT exam; supple neck, multiple large lymph nodes are palpated in the left cervical chain. Patient has multiple carious teeth. Stridor is noted. Neck is supple. Pupils are small bilaterally. No thyromegaly. Midline trachea. Chest exam; diminished breath sounds bilaterally. No added sounds. S1-S2 audible, no murmurs. Tachycardic. Regular rhythm. Abdomen exam; soft, scaphoid. Bowel sounds audible. Extremity exam; no peripheral edema. There is severe muscle loss over the entire body. Multiple petechiae also noted over the trunk. PROCUREMENT ANALYST exam; patient is unresponsive. Results Result Diagram: 10/20/18 0438 10/20/18 0438 Results 24hrs Laboratory Tests Test 10/20/18 04:38 10/20/18 10:07 White Blood Count 8.9 # Red Blood Count 3.98 L Hemoglobin 9.6 L Hematocrit 30.0 L Mean Corpuscular Volume 75.4 L Mean Corpuscular Hemoglobin 24.1 L Mean Corpuscular Hemoglobin Concent 32.0 Red Cell Distribution Width 19.0 H Platelet Count 209 Mean Platelet Volume 10.2 Immature Granulocytes % 0.300 Neutrophils % Segmented Neutrophils % (Manual) 75 Band Neutrophils % (Manual) 16 H Lymphocytes % Lymphocytes % (Manual) 7 L Monocytes % Monocytes % (Manual) 2 Eosinophils % Basophils % Nucleated Red Blood Cells % 0.0 Immature Granulocytes # 0.030 Neutrophils # Neutrophils # (Manual) 6.8 Band Neutrophils # 1.4 H Lymphocytes (Manual) 0.6 L Lymphocytes # Monocytes # Monocytes # (Manual) 0.1 L Eosinophils # Basophils # Nucleated Red Blood Cells # Toxic Granulation 1+ Platelet Estimate NORMAL Giant Platelets 2 H Hypochromasia 1+ Anisocytosis 1+ Microcytosis 2+ Spherocytes 1+ Ovalocytes 1+ Sodium Level 127 L Potassium Level 4.0 Chloride Level 89 L Carbon Dioxide Level 29 Anion Gap 9 Blood Urea Nitrogen 8 Creatinine 0.58 L Est Glomerular Filtrat Rate mL/min > 60 Glucose Level 102 Calcium Level 8.8 Phosphorus Level 2.4 L Magnesium Level 1.7 Blood Gas Specimen Source Blood arterial Arterial Blood Date Drawn 10/20/2018 10:14:49 AM Arterial Blood pH (Temp corrected) 7.533 H Arterial Blood pCO2 (Temp correct) 29.2 L Arterial Blood pO2 (Temp corrected) 93.4 Arterial Blood HCO3 24.0 Arterial Blood Base Excess 2.0 Arterial Blood Oxygen Saturation 97.6 Ronnie Test ACCEPTAB Arterial Blood Gas Puncture Site Left Radial Arterial Blood Carboxyhemoglobin 0 Arterial Blood Methemoglobin 0.3 Blood Gas A-a O2 Differential 590.4 H Oxyhemoglobin Percent 97.3 Blood Gas Temperature 37.0 Blood Gas Modality MASK - NRB FiO2 100.0 Blood Gas Notified Whom TM Blood Gas Notified Time 10/20/2018 10:21:27 AM Medications Medication Current Medications IV Flush (NS 3 ml) 3 ml PER PROTOCOL IV ; Start 10/15/18 at 16:30 Ondansetron HCl (Zofran Inj) 4 mg Q6H PRN IV NAUSEA/VOMITING; Start 10/15/18 at 16:30 Morphine Sulfate (morphine) 2 mg Q4H PRN IV .SEVERE PAIN 7-10 Last administered on 10/20/18at 05:12; Admin Dose 2 MG; Start 10/15/18 at 16:30 Nicotine (Nicoderm 21 Mg/ 24hr) 1 patch DAILY TRANSDERM Last administered on 10/20/18 08:57; Admin Dose 1 PATCH; Start 10/16/18 at 09:00 Fluconazole/ Sodium Chloride 50 ml @ 50 mls/hr Q24H IVPB Last administered on 10/19/18 17:49; Admin Dose 50 MLS/HR; Start 10/15/18 at 17:30 Heparin Sodium (Porcine) (Heparin (5000 Units/1ml)) 5,000 unit BID SC Last administered on 10/17/18 09:04; Admin Dose 5,000 UNIT; Start 10/16/18 at 21:00; Status Hold Metoclopramide HCl (Reglan) 10 mg Q6 IV Last administered on 10/20/18 06:13; A dmin Dose 10 MG; Start 10/19/18 at 18:00 Sucralfate (Carafate Susp) 1 gm QID PO Last administered on 10/20/18 08:57; Admin Dose 1 GM; Start 10/19/18 at 17:00 Famotidine (Pepcid Iv) 20 mg BID@0600,1800 IV Last administered on 10/20/18 06:13; Admin Dose 20 MG; Start 10/20/18 at 06:00 Sodium Chloride 1,000 ml @ 50 mls/hr Q20H IV Last administered on 10/20/18 09:44; Admin Dose 50 MLS/HR; Start 10/20/18 at 09:30 Sodium Phosphate 15 mmol/Sodium Chloride 255 ml @ 63.75 mls/ hr ONCE ONCE IVPB ; Start 10/20/18 at 11:00; Stop 10/20/18 at 14:59 Propofol 100 ml @ 1.032 mls/ hr Q12H IV Last administered on 10/20/18 11:26; Admin Dose 1.032 MLS/HR; Start 10/20/18 at 11:30 Norepinephrine 250 ml @ 1.875 mls/ hr TITRATE IV ; Start 10/20/18 at 12:00 Dopamine HCl/ Dextrose 250 ml @ 2.58 mls/hr TITRATE IV ; Start 10/20/18 at 12:00; Status UNV Phenylephrine HCl 40 mg/Dextrose 250 ml @ 37.5 mls/hr TITRATE IV ; Start 10/20/18 at 12:00; Status MARV CASH Oct 20, 2018 11:51
--- NOTE | 2018-10-20 11:54 | CONS ---
Consultation Date/Type/Reason Admit Date/Time Oct 15, 2018 at 15:38 Initial Consult Date 10/20/18 Type of Consult Pulmonary/critical care Patient is a 63-year-old male who was admitted on the of this month with complaints of dysphagia. Upon further evaluation patient was discovered to have extensive cervical lymphadenopathy. Patient also underwent MediPort placement as well as PEG tube placement yesterday. This morning the patient had respiratory event and MATERIAL HANDLING TECHNICIAN was called and patient was having significant respira tory distress with altered mental status. Patient was immediately rushed over to ICU. Because of significant stridor and altered mental status patient was intubated with significant difficulty at bedside. Please see intubation note. Past medical history; 1. Recently diagnosed laryngeal cancer. 2. Severely macerated state. 3. Possibly COPD. Medications; reviewed. Allergies; none. Social history; positive for smoking. Family history, occupational history not available. Review of system; unable to be obtained. General exam prior to intubation. Patient essentially unresponsive with sign ificant stridor. Requesting Provider: REGI AYALA Date/Time of Note DATE: 10/20/18 TIME: 11:53 24 HR Interval Summary Free Text/Dictation Oral intubation note. Patient transferred from medical floor with severe stridor. Patient was given 20 mg of etomidate intravenous push followed by 10 mg of vecuronium IV push x1. Patient intubated orally with initially size 6 endotracheal tube with significant difficulty owing to extensive tumor presence in the laryngeal area with vocal cord obstruction. After insertion of the endotracheal tube patient apparently developed an air leak around the tube requiring replacement of ET tube via bougee with 7 size tube. Placement confirmed by end-tidal CO2 indicator as well as chest x-ray that was done at bedside. Exam/Review of Systems Exam Vitals Vital Signs Date Temp Pulse Resp B/P (MAP) Pulse Ox O2 O2 Flow FiO2 Time Delivery Rate 10/20/18 154 10:36 10/20/18 28 Non 100 10:14 Rebreather Mask 10/20/18 98.6 160/65 96 07:38 (96) 10/19/18 10 15:50 Intake and Output 10/19/18 10/19/18 10/20/18 1515:00 23:00 07:00 IntakeIntake Total 870 ml 335 ml OutputOutput Total 650 ml 150 ml BalanceBalance -650 ml 720 ml 335 ml Results Result Diagram: 10/20/18 0438 10/20/18 0438 Results 24hrs Laboratory Tests Test 10/20/18 04:38 10/20/18 10:07 White Blood Count 8.9 # Red Blood Count 3.98 L Hemoglobin 9.6 L Hematocrit 30.0 L Mean Corpuscular Volume 75.4 L Mean Corpuscular Hemoglobin 24.1 L Mean Corpuscular Hemoglobin Concent 32.0 Red Cell Distribution Width 19.0 H Platelet Count 209 Mean Platelet Volume 10.2 Immature Granulocytes % 0.300 Neutrophils % Segmented Neutrophils % (Manual) 75 Band Neutrophils % (Manual) 16 H Lymphocytes % Lymphocytes % (Manual) 7 L Monocytes % Monocytes % (Manual) 2 Eosinophils % Basophils % Nucleated Red Blood Cells % 0.0 Immature Granulocytes # 0.030 Neutrophils # Neutrophils # (Manual) 6.8 Band Neutrophils # 1.4 H Lymphocytes (Manual) 0.6 L Lymphocytes # Monocytes # Monocytes # (Manual) 0.1 L Eosinophils # Basophils # Nucleated Red Blood Cells # Toxic Granulation 1+ Platelet Estimate NORMAL Giant Platelets 2 H Hypochromasia 1+ Anisocytosis 1+ Microcytosis 2+ Spherocytes 1+ Ovalocytes 1+ Sodium Level 127 L Potassium Level 4.0 Chloride Level 89 L Carbon Dioxide Level 29 Anion Gap 9 Blood Urea Nitrogen 8 Creatinine 0.58 L Est Glomerular Filtrat Rate mL/min > 60 Glucose Level 102 Calcium Level 8.8 Phosphorus Level 2.4 L Magnesium Level 1.7 Blood Gas Specimen Source Blood arterial Arterial Blood Date Drawn 10/20/2018 10:14:49 AM Arterial Blood pH (Temp corrected) 7.533 H Arterial Blood pCO2 (Temp correct) 29.2 L Arterial Blood pO2 (Temp corrected) 93.4 Arterial Blood HCO3 24.0 Arterial Blood Base Excess 2.0 Arterial Blood Oxygen Saturation 97.6 Ronnie Test ACCEPTAB Arterial Blood Gas Puncture Site Left Radial Arterial Blood Carboxyhemoglobin 0 Arterial Blood Methemoglobin 0.3 Blood Gas A-a O2 Differential 590.4 H Oxyhemoglobin Percent 97.3 Blood Gas Temperature 37.0 Blood Gas Modality MASK - NRB FiO2 100.0 Blood Gas Notified Whom TM Blood Gas Notified Time 10/20/2018 10:21:27 AM Medications Medication Current Medications IV Flush (NS 3 ml) 3 ml PER PROTOCOL IV ; Start 10/15/18 at 16:30 Ondansetron HCl (Zofran Inj) 4 mg Q6H PRN IV NAUSEA/VOMITING; Start 10/15/18 at 16:30 Morphine Sulfate (morphine) 2 mg Q4H PRN IV .SEVERE PAIN 7-10 Last administered on 10/20/18 05:12; Admin Dose 2 MG; Start 10/15/18 at 16:30 Nicotine (Nicoderm 21 Mg/ 24hr) 1 patch DAILY TRANSDERM Last administered on 10/20/18 08:57; Admin Dose 1 PATCH; Start 10/16/18 at 09:00 Fluconazole/ Sodium Chloride 50 ml @ 50 mls/hr Q24H IVPB Last administered on 10/19/18 17:49; Admin Dose 50 MLS/HR; Start 10/15/18 at 17:30 Heparin Sodium (Porcine) (Heparin (5000 Units/1ml)) 5,000 unit BID SC Last administered on 10/17/18 09:04; Admin Dose 5,000 UNIT; Start 10/16/18 at 21:00; Status Hold Metoclopramide HCl (Reglan) 10 mg Q6 IV Last administered on 10/20/18 06:13; Admin Dose 10 MG; Start 10/19/18 at 18:00 Sucralfate (Carafate Susp) 1 gm QID PO Last administered on 10/20/18 08:57; Admin Dose 1 GM; Start 10/19/18 at 17:00 Famotidine (Pepcid Iv) 20 mg BID@0600,1800 IV Last administered on 10/20/18 06:13; Admin Dose 20 MG; Start 10/20/18 at 06:00 Sodium Chloride 1,000 ml @ 50 mls/hr Q20H IV Last administered on 10/20/18 09:44; Admin Dose 50 MLS/HR; Start 10/20/18 at 09:30 Sodium Phosphate 15 mmol/Sodium Chloride 255 ml @ 63.75 mls/ hr ONCE ONCE IVPB ; Start 10/20/18 at 11:00; Stop 10/20/18 at 14:59 Propofol 100 ml @ 1.032 mls/ hr Q12H IV Last administered on 10/20/18 11:26; Admin Dose 1.032 MLS/HR; Start 10/20/18 at 11:30 Norepinephrine 250 ml @ 1.875 mls/ hr TITRATE IV ; Start 10/20/18 at 12:00 Dopamine HCl/ Dextrose 250 ml @ 2.58 mls/hr TITRATE IV ; Start 10/20/18 at 12:00; Status UNV Phenylephrine HCl 40 mg/Dextrose 250 ml @ 37.5 mls/hr TITRATE IV ; Start 10/20/18 at 12:00; Status UNV MARV GREEN Oct 20, 2018 11:54
[2018-10-20] MEDS ORDERED: NORepinephrine 8MG/250 ML (PMX 250 ML IV SCH ×2 (12:00)
[2018-10-20] MEDS ORDERED: PHENYLephrine 40 MG in DEXTROSE 5% 246 ML IV SCH (12:00)
[2018-10-20] MEDS ORDERED: DOPamine-D5W 1.6 MG/ML 250 ML IV SCH (12:00)
--- NOTE | 2018-10-20 12:17 | DES ---
Date/Time of Note Date/Time of Note DATE: 10/20/18 TIME: 12:16 Discharge/ Summary Admission/Discharge Info Admit Date/Time Oct 15, 2018 at 15:38 Final Diagnosis Cardiopulmonary arrest Bradycardia Acute respiratory failure secondary to neck mass Neck mass, likely carcinoma Dysphasia Anemia Oral thrush Preliminary Cause of Cardiopulmonary arrest Bradycardia Acute respiratory failure secondary to neck mass Neck mass, likely carcinoma Dysphasia Anemia Oral thrush Hospital Course Patient is a male with recently diagnosed neck mass, likely cancer, still pending biopsy results who originally presented to [facility] for ongoing dysphagia to solids and liquids. Patient had a relatively uneventful stay and was seen by multiple specialists including infectious disease, GI, oncology. Patient was on his way to be set up for outpatient treatment for radiation therapy and chemotherapy when he began to have respiratory stridor the morning of 10/20/18 was subsequently intubated for airway protection. Patient subsequently was intubated and in the ICU where he apparently became progressively more bradycardic and eventually went into pulseless electrical activity cardiac arrest. Patient was coded by the emergency department physician and time of was 1207 on October 20, 2018. diagnosis Cardiopulmonary arrest Bradycardia Acute respiratory failure secondary to neck mass Neck mass, likely carcinoma Dysphasia Anemia Oral thrush Pending Labs/Cultures Laboratory Tests Test 10/20/18 04:38 10/20/18 10:07 10/20/18 11:55 White Blood Count 8.9 10^3/ul (4.8-10.8) Red Blood Count 3.98 10^6/ul (4.70-6.10) Hemoglobin 9.6 g/dl (14.0-18.0) Hematocrit 30.0 % (42.0-52.0) Mean Corpuscular 75.4 Volume fl (82.0-101.0) Mean Corpuscular 24.1 pg (29.0-33.0) Hemoglobin Mean Corpuscular 32.0 Hemoglobin Concent g/dl (32.0-37.0) Red Cell 19.0 % (11.5-14.5) Distribution Width Platelet Count 209 10^3/UL (140-415) Mean Platelet 10.2 fl (7.4-10.4) Volume Immature 0.300 Granulocytes % % (0.001-0.429) Neutrophils % % (39.0-77.0) Segmented 75 % (39-77) Neutrophils % (Manual) Band Neutrophils % 16 % (0-4) (Manual) Lymphocytes % % (15.0-51.0) Lymphocytes % 7 % (15-51) (Manual) Monocytes % % (0.0-11.0) Monocytes % 2 % (0-11) (Manual) Eosinophils % % (0.0-7.0) Basophils % % (0.0-2.0) Nucleated Red Blood 0.0 Cells % /100WBC (0.0-0.0) Immature 0.030 Granulocytes # 10^3/ul (0.0-0.031) Neutrophils # 10^3/ul (1.6-7.5) Neutrophils # 6.8 (Manual) 10^3/ul (1.6-7.5) Band Neutrophils # 1.4 10^3/ul (0.0-0.6) Lymphocytes 0.6 (Manual) 10^3/ul (0.8-2.9) Lymphocytes # 10^3/ul (0.8-2.9) Monocytes # 10^3/ul (0.3-0.9) Monocytes # 0.1 (Manual) 10^3/ul (0.3-0.9) Eosinophils # 10^3/ul (0.0-0.5) Basophils # 10^3/ul (0.0-0.1) Nucleated Red Blood 10^3/ul (0.0-0.0) Cells # Toxic Granulation 1+ (0-0) Platelet Estimate NORMAL Giant Platelets 2 % (0-0) Hypochromasia 1+ (0-0) Anisocytosis 1+ (0-0) Microcytosis 2+ (0-0) Spherocytes 1+ (0-0) Ovalocytes 1+ (0-0) Sodium Level 127 mmol/L (135-144) Potassium Level 4.0 mmol/L (3.5-5.1) Chloride Level 89 mmol/L (97-110) Carbon Dioxide 29 mmol/L (21-31) Level Anion Gap 9 (5-13) Blood Urea Nitrogen 8 mg/dl (7-20) Creatinine 0.58 mg/dl (0.61-1.24) Est Glomerular > 60 mL/min (>60) Filtrat Rate mL/min Glucose Level 102 mg/dl (70-220) Calcium Level 8.8 mg/dl (8.4-10.2) Phosphorus Level 2.4 mg/dl (2.5-4.9) Magnesium Level 1.7 mg/dl (1.7-2.5) Blood Gas Specimen Blood arterial Source Arterial Blood Date 10/20/2018 10:14:49 Drawn AM Arterial Blood pH 7.533 (7.350-7.450) (Temp corrected) Arterial Blood pCO2 29.2 mmhg (35-45) (Temp correct) Arterial Blood pO2 93.4 (Temp corrected) mmHG (80-100.0) Arterial Blood 24.0 HCO3 mmol/L (22.0-26.0) Arterial Blood Base 2.0 mmol/L (-3.0-3) Excess Arterial Blood 97.6 Oxygen Saturation mmHG (95.0-98.0) Ronnie Test ACCEPTAB Arterial Blood Gas Left Radial Puncture Site Arterial 0 % (0.0-3.0) Blood Carboxyhemogl obin Arterial Blood 0.3 % (0.0-1.5) Methemoglobin Blood Gas A-a O2 590.4 Differential mmHg (7.0-24.0) Oxyhemoglobin 97.3 % (93.0-99.0) Percent Blood Gas 37.0 C Temperature Blood Gas Modality MASK - NRB FiO2 100.0 % Blood Gas Notified TM Whom Blood Gas Notified 10/20/2018 10:21:27 Time AM Bedside Glucose 66 mg/dL (70-220) REGI AYALA Oct 20, 2018 12:17
--- NOTE | 2018-10-20 12:23 | PN ---
Date/Time of Note Date/Time of Note DATE: 10/20/18 TIME: 12:17 Objective Vitals Vital Signs Date Temp Pulse Resp B/P (MAP) Pulse Ox O2 O2 Flow FiO2 Time Delivery Rate 10/20/18 138 11:56 10/20/18 28 Non 100 10:14 Rebreather Mask 10/20/18 98.6 160/65 96 07:38 (96) 10/19/18 10 15:50 Intake and Output 10/19/18 10/19/18 10/20/18 1515:00 23:00 07:00 IntakeIntake Total 870 ml 335 ml OutputOutput Total 650 ml 150 ml BalanceBalance -650 ml 720 ml 335 ml Results Result Diagram: 10/20/18 0438 10/20/18 0438 Medications Medications Current Medications IV Flush (NS 3 ml) 3 ml PER PROTOCOL IV ; Start 10/15/18 at 16:30 Ondansetron HCl (Zofran Inj) 4 mg Q6H PRN IV NAUSEA/VOMITING; Start 10/15/18 at 16:30 Morphine Sulfate (morphine) 2 mg Q4H PRN IV .SEVERE PAIN 7-10 Last administered on 10/20/18 05:12; Admin Dose 2 MG; Start 10/15/18 at 16:30 Nicotine (Nicoderm 21 Mg/ 24hr) 1 patch DAILY TRANSDERM Last administered on 10/20/18 08:57; Admin Dose 1 PATCH; Start 10/16/18 at 09:00 Fluconazole/ Sodium Chloride 50 ml @ 50 mls/hr Q24H IVPB Last administered on 10/19/18 17:49; Admin Dose 50 MLS/HR; Start 10/15/18 at 17:30 Heparin Sodium (Porcine) (Heparin (5000 Units/1ml)) 5,000 unit BID SC Last administered on 10/17/18 09:04; Admin Dose 5,000 UNIT; Start 10/16/18 at 21:00; Status Hold Metoclopramide HCl (Reglan) 10 mg Q6 IV Last administered on 10/20/18 06:13; Admin Dose 10 MG; Start 10/19/18 at 18:00 Sucralfate (Carafate Susp) 1 gm QID PO Last administered on 10/20/18 08:57; Admin Dose 1 GM; Start 10/19/18 at 17:00 Famotidine (Pepcid Iv) 20 mg BID@0600,1800 IV Last administered on 10/20/18at 06:13; Admin Dose 20 MG; Start 10/20/18 at 06:00 Sodium Chloride 1,000 ml @ 50 mls/hr Q20H IV Last administered on 10/20/18at 09:44; Admin Dose 50 MLS/HR; Start 10/20/18 at 09:30 Sodium Phosphate 15 mmol/Sodium Chloride 255 ml @ 63.75 mls/ hr ONCE ONCE IVPB ; Start 10/20/18 at 11:00; Stop 10/20/18 at 14:59 Propofol 100 ml @ 1.032 mls/ hr Q12H IV Last administered on 10/20/18at 11:26; Admin Dose 1.032 MLS/HR; Start 10/20/18 at 11:30 Dopamine HCl/ Dextrose 250 ml @ 2.58 mls/hr TITRATE IV ; Start 10/20/18 at 12:00 Phenylephrine HCl 40 mg/Dextrose 250 ml @ 37.5 mls/hr TITRATE IV ; Start 10/20/18 at 12:00 Norepinephrine 250 ml @ 1.875 mls/ hr TITRATE IV ; Start 10/20/18 at 12:00 VTE Prophylaxis Risk score (from Ns)>0 risk: 7 SCD applied (from Ns): Yes Lines/Catheters IV Catheter Type: Juárez in Place: No Assessment/Plan Hospital Course Subjective I went into the patient's room this morning, found patient lying on his side with a significant respiratory stridor and unable to be aroused. Patient was moving spontaneous movements but with no comprehension. Patient was not oriented at this time. I immediately called THERMAL CUTTING TRACER MACHINE OPERATOR and patient was subsequently intubated and sent to the ICU. Objective Physical exam General: Patient is laying in bed in respiratory distress Mentation: Patient is arousable but not alert and oriented Head: Normocephalic atraumatic Eyes: EOMI, pupils reactive to light Neck: Supple, very mildly tender, prominent lymph nodes Respiratory: Diffuse wheezing to auscultation bilaterally Cardiovascular: Tachycardic rate, no obvious murmurs Gastrointestinal: non-tender to palpation, bowel sounds heard. Neurological: Moves all extremities spontaneously Skin: No new skin lesions Assessment/Plan Cardiopulmonary arrest, PEA arrest -Unknown cause at this time however patient was a very difficult intubation per pulmonology, stated that there were obstructing tumors which made for a very difficult intubation, patient's PEA arrest is likely secondary to complications due to his neck mass which as of right now is not diagnosed as cancer but our leading diagnosis is cancer. Cannot rule out PE in a patient with cancer however patient was having diffuse respiratory stridor more consistent with issues with his airway which is consistent with his tumor causing him obstruction. Time between intubation and cardiopulmonary arrest was very short and no additional diagnostic tests were available to be done to evaluate for patient's respiratory distress before cardiac arrest. Acute encephalopathy -Was not alerted of patient's mental or respiratory change so unsure of when this decompensation began, found patient in respiratory distress, patient was immediately intubated and sent to the ICU where he developed PEA arrests after a short stay in the ICU. Dysphagia, solid and liquids - CT scan suspicious for SCC. biopsy done, results pending - Dr. Ortiz ENT, saw patient, not surgical candidate, but ok for lymph node biopsy of level 2 lymph nodes - Fluconazole IV on board. Thrush on tongue and palate not appreciate after provided oral care - Discussed potential need for PEG tube based on plan of care. Will await biopsy results, IVF and TPN to cont - Oncology consultation placed given high suspicion for SCC, pending biopsy results Anemia, iron deficiency - IV iron replacement - will need PO when able to tolerate Tobacco abuse - nicotine patch Dental issues -will need removal or addressing before DC and prior to initiate chemo -appt made for 10/25 at [facility] Severe protein malnutrition Oral thrush -On IV fluconazole -ID consulted Disposition -Patient was ICU status, patient coded, patient's time of called by ER physician was 1207 on October 20, 2018. REGI AYALA Oct 20, 2018 12:23
--- NOTE | 2018-10-20 14:08 | QN ---
Documentation Comment 63-year-old man I was called to a CODE BLUE on. Patient was in the ICU for respiratory failure requiring orotracheal intubation about an hour prior. He has a neck mass most likely representing invasive carcinoma, and just prior to my arrival lost pulses, initial rhythm was pulseless electrical activity. Chest compressions were started and multiple doses of intravenous epinephrine were administered. Patient was already intubated and during resuscitation breath sounds were equal bilateral but diminished. Despite multiple rounds of epinephrine and all resuscitation patient remained pulseless, apneic, and unresponsive. Patient was pronounced by me on 12:07 October 20, 2018 REGI MARTINEZ MD Oct 20, 2018 14:08
--- NOTE | 2018-10-21 13:22 | CONS ---
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 He has lost 40 to 50 pounds, and now weighs close to 80 pound s. He has the sensation that his throat and tongue are swollen. He denies otalgia, shortness of lanette ath, cough or hemoptysis. He was noted at admission to have palpable neck adenopathy. On 10/15/2018 , a CT of the neck, demonstrated diffuse soft tissue swelling throughout the neck as well as an incre ased soft tissue density in the floor of mouth and base of tongue with a collection of air and the drew ggestion of fluid appearing to communicate with the aerodigestive tract at the junction of the oropha rynx and hypopharynx. The air collection measured 40 x 30 mm. There was an area of increased densit y in the left lateral wall of the oropharynx, which appeared to extend into the hypopharynx with the suggestion of the false vocal cords being involved as well. This area measured 31 x 19 mm. The naso pharynx, true vocal cords and subglottic region were unremarkable. Multiple enlarged lymph nodes wer e observed within the cervical and submental chains and were heterogeneous in attenuation. There was diffuse osteopenia and a T3 compression fracture noted. A CT chest, abdomen and pelvis on 9 showed multiple less than 5 mm indeterminate, noncalcified lung nodules not present on a prior stud y from 2016. Generalized soft tissue wasting was observed, as were compression fractures involving T 3, T6, T9 and T11. There was also hyperinflation with central lobular emphysema. An MRI of the neck , also on 10/15/2018 confirmed a large heterogeneously enhancing mass with areas of necrosis involvin g the left and right floor of mouth, the oral tongue, left and right oropharynx, including the epiglo ttis, the right and left hypopharynx, the supraglottic larynx, vocal cords (left greater than right)a nd left subglottic larynx. There was a large air-filled tract extending from the floor of mouth into the vallecula. There appeared to be involvement of the hyoid bone and infiltration of the thyroid c artilage. The necrotic mass extended through the floor of mouth into the left neck soft tissues. Ne crotic left level 1B, bilateral level 2, level 3 and level 4 lymph nodes were observed, left greater than right. The airway was narrowed at the level of the hypopharynx. The patient has undergone ENT evaluation with Dr. Ortiz who on endoscopic examination described a 2 cm midline base of tongue mass , but normal appearing vocal cords that moved appropriately. There was a large volume of inspissated and thickened secretions within the hypopharynx. PAST MEDICAL HISTORY: Negative. SURGICAL HISTORY: Unremarkable. ALLERGIES: None. MEDICATIONS: Patient takes no medications at home. SOCIAL HISTORY: He has a long history of tobacco use. He drinks alcohol socially. He lives with [facility]. REVIEW OF SYSTEMS: GENERAL: No fevers, chills or sweats. Admits to fatigue. ENT: As above. No epistaxis. PULMONARY: No shortness of breath, cough, hemoptysis or wheezing. CARDIOVASCULAR: No chest pain, palpitations, heart attack, strokes. GASTROINTESTINAL: Mild nausea but no vomiting, diarrhea, constipation, or rectal bleeding. GENITOURINARY: No dysuria, hematuria or incontinence. ENDOCRINE: No history of diabetes or thyroid disease. SKIN: No history of lupus, scleroderma or shingles. MUSCULOSKELETAL: Mild back pain. No rib or pelvic pain. PHYSICAL EXAMINATION: GENERAL: Frail, thin appearing gentleman in no distress. HEENT: Temporal wasting. Oral cavity without thrush or mucositis but the tongue motion is restricte d. He cannot protrude the tongue or lateralize the tongue. Dentition is quite poor. No visible fri able masses observed in the oral cavity. NECK: There are large mobile 1 to 2 cm left level 1B lymph nodes and palpable left greater than righ t cervical adenopathy. No supraclavicular adenopathy. No axillary adenopathy. LUNGS: Clear. ABDOMEN: Scaphoid, soft and nontender, without rebound or guarding. EXTREMITIES: No edema. MUSCULOSKELETAL: No spine or flank tenderness. NEUROLOGIC: Grossly nonfocal. 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 PLAN: The patient is scheduled for a biopsy of a neck node and I anticipate the results to reflect s quamous cell carcinoma. I will review the case with Dr. Farias. The patient is not a surgical can didate. It is unclear if he can tolerate multimodal therapy either. Given the extent of disease he potentially may benefit from a course of neoadjuvant chemotherapy. He also may benefit from placemen t of a tracheostomy and a PEG tube. He also required dental evaluation as in order to treat him appr opriately, I anticipate that several of his teeth will need to be extracted first. Otherwise, he priscilla l be at significant risk for sepsis during chemotherapy and for osteoradionecrosis after radiation tr eatment. Ideally, he was ultimately receive a course of concurrent chemoradiation with weekly or every 3-week [place] in conjunction with daily IMRT to the primary site and bilateral neck over 7 weeks. The juarez ure, rationale, risks, benefits of treatment were reviewed in general. Side effects could include fa tigue, skin reaction, xerostomia, taste alteration, mucositis, dysphagia, odynophagia, hoarseness, hy pothyroidism, osteonecrosis of the mandible, pharyngeal stricture. Care will be coordinated with medical oncology. Thank you for allowing me to participate with his assessment. Dictated By: MANN ENCISO/TESHA Conf#: [id number] DID#: [id number] CC: REGI AYALA MD; DARRON KULKARNI MD; REGI ORTIZ MD; TRISH FARIAS;*EndCC*
== END 2018-10-20 12:07 | disposition expired | DRG 146 ==
LOC: E/R 11:45 → 2NE 15:38 → ICU 10-20 10:25
PROVIDERS: ADMIT Internal Medicine; ATTEND Internal Medicine
PROC: 0JB53ZX Excision of Left Neck Subcutaneous Tissue and Fascia, Percutaneous Approach, Diagnostic (ICD-10-PCS; principal; 2018-10-18)
PROC: 0DJ08ZZ Inspection of Upper Intestinal Tract, Via Natural or Artificial Opening Endoscopic (ICD-10-PCS; 2018-10-19)
PROC: 0DH63UZ Insertion of Feeding Device into Stomach, Percutaneous Approach (ICD-10-PCS; 2018-10-19)
DX: C06.9 Malignant neoplasm of mouth, unspecified (principal); E43 Unspecified severe protein-calorie malnutrition; B37.0 Candidal stomatitis; C79.89 Secondary malignant neoplasm of other specified sites; D50.9 Iron deficiency anemia, unspecified; F17.200 Nicotine dependence, unspecified, uncomplicated; R13.10 Dysphagia, unspecified
CPT/HCPCS: 31500; 36415; 36561; 36600; 70491; 70543; 71045; 71260; 74177; 76942; 80048; 80053; 80069; 82803; 82962; 83540; 83735; 84100; 85014; 85018; 85025; 85610; 85730; 88307; 88313; 88341; 88342; 90686; 92610; 92950; 94002; 94664; 97161; C1788; C9113; J0690; J1265; J1450; J1644; J2060; J2250; J2270; J2765; J2916; J3010; J3480; J7030; J7042; J7050; J7070; Q9967